=== PATIENT | male | born 1935 | race Caucasian/White ===

== ENCOUNTER → 2018-08-13 08:03 | Outpatient (CLI) | payer MEDICARE, SELFPAY ==
[2018-08-13 08:40] LABS: Add Manual Diff / Slide Review NO; Basophils Percent Auto 0.7 % (0-2); Eosinophils Percent Auto 3.6 % (2-4); Hematocrit 49.3 % (41-53); Hemoglobin 16.7 g/dL (13.5-17.5); Lymphocytes Percent Auto 61.1 % (25-40); Mean Corpuscular HGB Conc 33.8 % (30-36); Mean Corpuscular Hemoglobin 31.9 PG (26-34); Mean Corpuscular Volume 94.5 fL (80-100); Monocytes Percent Auto 8.4 % (3-14); Neutrophils Absolute Auto 3400 /uL (3000-5900); Neutrophils Percent Auto 26.2 % (50-75); Platelet Count 200 X10^3/uL (150-400); Red Blood Cell Count 5.22 X10^6/uL (4.5-5.9); Red Cell Distribution Width 14.2 % (11.6-14.8); White Blood Cell Count 13.2 X10^3/uL (4.5-11.0)
[2018-08-13 09:05] LABS: Alanine Aminotransferase 27 IU/L (21-72); Albumin 4.3 g/dL (3.5-5.0); Albumin Globulin Ratio 1.3 (1.0-2.8); Alkaline Phosphatase 70 U/L (38-126); Aspartate Aminotransferase 36 IU/L (17-59); BUN Creatinine Ratio 21.4 (6-22); Bilirubin Total 1.4 mg/dL (0.2-1.3); Blood Urea Nitrogen 15 mg/dL (9-20); Calcium 9.4 mg/dL (8.4-10.2); Carbon Dioxide 34 mmol/L (22-32); Chloride 103 mmol/L (98-107); Estimated Glomerular Filt Rate > 60.0 mL/min (>60); Globulin 3.3 g/dL (1.7-4.1); Glucose 101 mg/dL (80-110); HEMOLYSIS < 15 (0-50); Lactate Dehydrogenase 436 U/L (313-618); Potassium 4.6 mmol/L (3.4-5.1); Sodium 145 mmol/L (137-145); Total Protein 7.6 g/dL (6.3-8.2); Uric Acid 3.8 mg/dL (3.5-8.5)
== END ==
PROVIDERS: Family Provider Family Medicine; PCP Family Medicine; Visit Provider Internal Medicine Hematology & Oncology
DX: C91.10 Chronic lymphocytic leukemia of B-cell type not having achieved remission (principal)
CPT/HCPCS: 36415; 80053; 83615; 84550; 85025

== ENCOUNTER 2018-08-14 11:03 | Oncology outpatient (ONC) | payer MEDICARE, SELFPAY ==
[2018-08-14 11:21] VITALS: BP 138/64; PULSE 91; RESP 17; TEMP 37.1; O2SAT 97
--- NOTE | 2018-08-14 11:36 | ONC.PN ---
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 Interval history: The patient is an 82-year-old man who returns today for follow-up of CLL. Today, he is feeling quite well and has no specific complaints. He denies any fevers chills or night sweats. His strength and energy level have been normal. He has not had any unusual bleeding or bruising. He denies any GI complaints. His appetite and weight have been stable. He has not noted any adenopathy. He is otherwise without complaint. His medications include aspirin simvastatin allopurinol and meloxicam His past medical history is otherwise notable for hyperlipidemia. Social history: He is a retired real estate sales supervisor. He does not smoke. He remains quite active and enjoys golfing. He is . His is with him today. Home Medications and Allergies Home Medications Medication Instructions Recorded Confirmed Type aspirin 162.5 mg PO QDAY #0 05/01/13 08/14/18 History sildenafil (antihypertensive) 0 PO SEE INSTRUCTIONS #40 tab 05/08/17 Rx allopurinol 300 mg PO QDAY #90 tab 12/05/17 08/14/18 Rx meloxicam [Mobic] 7.5 mg PO AMCC #90 tab 12/05/17 08/14/18 Rx simvastatin 80 mg PO QDAY #90 tab 12/05/17 08/14/18 Rx Allergies Allergy/AdvReac Type Severity Reaction Status Date / Time No Known Drug Allergies Allergy Verified 08/14/18 11:23 Exam Vital signs: Last Vital Signs Temp 98.8 F 08/14/18 11:21 Pulse 91 H 08/14/18 11:21 Resp 17 08/14/18 11:21 BP 138/64 08/14/18 11:21 Pulse Ox 97 08/14/18 11:21 - Constitutional positive no acute distress, positive average body habitus - Routine HEENT Exam Head: Present: normocephalic, atraumatic Eye: Present: EOMI, PERRL. Absent: conjunctival icterus ENT: Present: mucous membranes moist, oropharynx clear - Routine Neck Exam Present: supple. Absent: lymphadenopathy, thyromegaly - Routine Respiratory Exam Present: Clear to auscultation bilaterally. Absent: rales, wheezes - Routine Cardiovascular Exam Present: RRR, S1, S2. Absent: murmur - Routine Abdominal Exam Present: soft, normoactive bowel sounds. Absent: organomegaly, mass - Routine Extremities Exam Present: cyanosis, clubbing, edema - Routine Back/Spine Exam Back/Spine: Present: vertebral tenderness - Routine Skin Exam Present: intact. Absent: petechiae, rash - Routine Neurological Exam Present: alert, oriented X3 - Routine Psychiatric Exam Present: normal affect, normal thought process Results - Imaging Additional studies: Procedures Repair of inguinal hernia with graft or prosthesis, not otherwise specified (11/20/14) Total splenectomy (08/02/15) Transfusion of packed cells (08/02/15)
--- NOTE | 2018-08-14 11:40 | P.PNONC_ITS ---
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 Interval history: The patient is an 82-year-old man who returns today for follow-up of CLL. Today , he is feeling quite well and has no specific complaints. He denies any fevers chills or night sweats. His strength and energy level have been normal. He has not had any unusual bleeding or bruising. He denies any GI complaints. His appetite and weight have been stable. He has not noted any adenopathy. He is otherwise without complaint. His medications include aspirin simvastatin allopurinol and meloxicam His past medical history is otherwise notable for hyperlipidemia. Social history: He is a retired real estate administrator. He does not smoke. He remains quite active and enjoys golfing. He is . His is with him today. Home Medications and Allergies Home Medications Medication Instructions Recorded Confirmed Type aspirin 162.5 mg PO QDAY #0 05/01/13 08/14/18 History sildenafil (antihypertensive) 0 PO SEE INSTRUCTIONS #40 tab 05/08/17 Rx allopurinol 300 mg PO QDAY #90 tab 12/05/17 08/14/18 Rx meloxicam [Mobic] 7.5 mg PO AMCC #90 tab 12/05/17 08/14/18 Rx simvastatin 80 mg PO QDAY #90 tab 12/05/17 08/14/18 Rx Allergies Allergy/AdvReac Type Severity Reaction Status Date / Time No Known Drug Allergies Allergy Verified 08/14/18 11:23 Exam Vital signs: Last Vital Signs Temp 98.8 F 08/14/18 11:21 Pulse 91 H 08/14/18 11:21 Resp 17 08/14/18 11:21 BP 138/64 08/14/18 11:21 Pulse Ox 97 08/14/18 11:21 - Constitutional positive no acute distress, positive average body habitus - Routine HEENT Exam Head: Present: normocephalic, atraumatic Eye: Present: EOMI, PERRL. Absent: conjunctival icterus ENT: Present: mucous membranes moist, oropharynx clear - Routine Neck Exam Present: supple. Absent: lymphadenopathy, thyromegaly - Routine Respiratory Exam Present: Clear to auscultation bilaterally. Absent: rales, wheezes - Routine Cardiovascular Exam Present: RRR, S1, S2. Absent: murmur - Routine Abdominal Exam Present: soft, normoactive bowel sounds. Absent: organomegaly, mass - Routine Extremities Exam Present: cyanosis, clubbing, edema - Routine Back/Spine Exam Back/Spine: Present: vertebral tenderness - Routine Skin Exam Present: intact. Absent: petechiae, rash - Routine Neurological Exam Present: alert, oriented X3 - Routine Psychiatric Exam Present: normal affect, normal thought process Results - Imaging Additional studies: Procedures Repair of inguinal hernia with graft or prosthesis, not otherwise specified (06/27) Total splenectomy (08/02/15) Transfusion of packed cells (08/02/15)
== END 2018-08-29 14:13 ==
LOC: ONC 11:09
PROVIDERS: Family Provider Family Medicine; PCP Family Medicine
DX: Z08 Encounter for follow-up examination after completed treatment for malignant neoplasm (principal); Z85.6 Personal history of leukemia
CPT/HCPCS: 99214

== ENCOUNTER 2018-09-07 13:39 | Emergency (ER) | payer MEDICARE, SELFPAY ==
[2018-09-07] VITALS (9 sets, daily range): BP systolic 143–158; BP diastolic 71–82; PULSE 68–77; RESP 13–18; TEMP 36.9; O2SAT 96–100; BMI 26.6
--- NOTE | 2018-09-07 14:00 | DI.RAD.S_ITS ---
PROCEDURE: XR CHEST 1V INDICATIONS: dizziness TECHNIQUE: One view of the chest was acquired. COMPARISON: [facility], CT, CHEST/ABD/PEL WITH CONTRAST, 08/02/2015, 10:28. [facility], RG, XR CXR 2V, 04/08/2005, 9:21. [facility], CR, CHEST 1 VIEW, 08/02/2015, 8:52. FINDINGS: Surgical changes and devices: Left upper quadrant postoperative clips are seen. Lungs and pleura: No pleural effusions or pneumothorax. Streaky opacities can be seen at the lung bases, which are improved compared to 2015. Mediastinum: The cardiac contours are within normal limits. The aorta demonstrates calcification and tortuosity. Bones and chest wall: No suspicious bony lesions. Overlying soft tissues appear unremarkable. IMPRESSION: Likely atelectasis versus scarring at the lung bases. Postoperative and degenerative changes are seen. Dictated by: Olu Estrada M.D. on 09/07/2018 at 13:36 Approved by: Olu Estrada M.D. on 09/07/2018 at 13:38
[2018-09-07 14:19] LABS: Add Manual Diff / Slide Review NO; Basophils Percent Auto 0.7 % (0-2); Hematocrit 47.6 % (41-53); Hemoglobin 15.8 g/dL (13.5-17.5); Lymphocytes Percent Auto 49.8 % (25-40); Mean Corpuscular HGB Conc 33.2 % (30-36); Mean Corpuscular Hemoglobin 31.4 PG (26-34); Mean Corpuscular Volume 94.4 fL (80-100); Monocytes Percent Auto 9.9 % (3-14); Neutrophils Absolute Auto 4800 /uL (3000-5900); Neutrophils Percent Auto 38.6 % (50-75); Platelet Count 198 X10^3/uL (150-400); Red Blood Cell Count 5.04 X10^6/uL (4.5-5.9); Red Cell Distribution Width 14.4 % (11.6-14.8); White Blood Cell Count 12.4 X10^3/uL (4.5-11.0)
[2018-09-07] MEDS: SODIUM CHLORIDE 0.9% 1,000 ML 150 ML IV (14:19)
[2018-09-07 14:28] LABS: Alanine Aminotransferase 30 IU/L (21-72); Albumin 4.2 g/dL (3.5-5.0); Albumin Globulin Ratio 1.4 (1.0-2.8); Alkaline Phosphatase 55 U/L (38-126); Aspartate Aminotransferase 31 IU/L (17-59); BUN Creatinine Ratio 22.9 (6-22); Blood Urea Nitrogen 16 mg/dL (9-20); Calcium 9.1 mg/dL (8.4-10.2); Carbon Dioxide 33 mmol/L (22-32); Chloride 102 mmol/L (98-107); Estimated Glomerular Filt Rate > 60.0 mL/min (>60); Globulin 2.9 g/dL (1.7-4.1); Glucose 107 mg/dL (80-110); HEMOLYSIS < 15 (0-50); Sodium 144 mmol/L (137-145); Total Protein 7.1 g/dL (6.3-8.2)
[2018-09-07 14:41] LABS: Troponin I < 0.012 ng/mL (0.01-0.034)
--- NOTE | 2018-09-07 14:52 | DI.CT.S_ITS ---
PROCEDURE: CT HEAD/BRAIN WO CON INDICATIONS: dizziness TECHNIQUE: Noncontrast 4.5 mm thick angled axial sections acquired from the foramen magnum to the vertex, with coronal and sagittal reformats. For radiation dose reduction, the following was used: automated exposure control, adjustment of mA and/or kV according to patient size. COMPARISON: None. FINDINGS: Image quality: Excellent. CSF spaces: Basal cisterns are patent. No extra-axial fluid collections. The ventricles are symmetric in size and shape. Brain: No intracranial bleeds or masses. There is mild cerebral volume loss for age, with resultant ventricular and sulcal prominence. There are severe periventricular and deep white matter chronic small vessel ischemic changes. There is intracranial internal carotid artery atherosclerosis. Skull and face: Calvarium and visualized facial bones appear intact, without suspicious lesions. Sinuses: Visualized sinuses and mastoids are clear. IMPRESSION: No acute intracranial disease process. Dictated by: Olinda Salinas MD, PhD on 09/07/2018 at 15:07 Approved by: Olinda Salinas MD, PhD on 09/07/2018 at 15:10
[2018-09-07] MEDS: MECLIZINE HCL 12.5 MG TABLET 25 MG PO (15:00)
[2018-09-07] MEDS: SODIUM CHLORIDE 0.9% 1,000 ML 1000 ML IV (15:00)
--- NOTE | 2018-09-07 15:01 | ED.DIZZY ---
HPI - Dizziness General Chief Complaint: Dizziness Stated Complaint: DIZZY SPELLS, BP ISSUES Time Seen by Provider: 09/07/18 13:59 Source: patient and family Limitations: no limitations History of Present Illness HPI Narrative: This is a 82-year-old gentleman who comes to the emergency department with complaint of dizziness. He states he noticed he felt dizzy about 10 30 last night he went to bed and when he woke up in the middle the night he felt very dizzy. He describes this as feeling off balance. He states the room not spinning around him but he feels like his head is whirling. He states that some if he sits on the edge of the bed his symptoms were okay but trying to walk he had to hang on things to keep from stumbling or falling. He states that today has continued to increase and he was unable to stand or walk around the house. Patient states that he has not had any loss of consciousness or feeling like he is going to pass out, he denies any tunnel vision. He has not felt any weakness in his extremities or Um any focal neurologic deficits. He denies any vision changes, he had a slight headache this morning but it has improved. He denies any chest pain, no shortness of breath, no nausea or vomiting, no issues with bowel movements or urination. Denies any numbness or tingling of his extremities. He has had some slight nasal congestion but has not had any ear pain or pressure. He does have a history of CO cardiac stent in 2001. He also has CLL Um which was diagnosed about 20 years ago and has not required any treatment. Other than a splenectomy, patient does smoke above ordered have bouts of alcohol daily. He takes a statin for cholesterol but denies any hypertension, diabetes, chronic kidney disease or other issues. He has had a hernia and states his only allergies are 2 cats. He did use to smoke but quit a long time ago. Related Data Home Medications Medication Instructions Recorded Confirmed aspirin 162.5 mg PO QDAY #0 05/01/13 09/07/18 simvastatin 40 mg PO QPM 09/07/18 09/07/18 Previous Rx's Medication Instructions Recorded allopurinol 300 mg PO QDAY #90 tab 12/05/17 meloxicam [Mobic] 7.5 mg PO AMCC #90 tab 12/05/17 meclizine 25 mg PO TID-QID PRN #10 tab 10/26/18 Allergies Allergy/AdvReac Type Severity Reaction Status Date / Time No Known Drug Allergies Allergy Verified 08/14/18 11:23 Review of Systems Review of Systems All systems reviewed & are unremarkable except as noted in HPI and below Constitutional Denies fever(s), Reports headache(s) and Denies weakness Eyes Denies blurry vision ENT Ears, Nose, Mouth, and Throat: Reports vertigo, Reports dizziness, Denies otalgia, Reports headache(s), Reports nasal congestion (Mild) and Reports disequilibrium Cardiovascular Denies chest pain, Denies diaphoresis, Denies syncope, Denies pedal edema, Denies irregular heart rhythm, Denies lightheadedness, Denies palpitations, Denies dyspnea and Denies orthopnea Respiratory Denies chest congestion, Denies cough, Denies pain with cough, Denies dyspnea and Denies wheezing Gastrointestinal Gastrointestinal: Denies abdominal pain, Denies change in bowel habits, Denies diarrhea, Denies nausea and Denies vomiting Genitourinary Denies difficulty urinating Musculoskeletal Denies abnormal gait, Denies numbness and Denies tingling Integumentary/Breasts Denies rash Neurologic Denies abnormal gait, Reports vertigo, Reports dizziness, Denies syncope, Reports headache(s), Denies focal weakness, Denies numbness, Denies tingling, Reports disequilibrium and Denies weakness Endocrine Denies palpitations Allergic/Immunologic Denies wheezing PFSH Medical History CLL (chronic lymphocytic leukemia) (Acute) Coronary artery disease (Acute) Dyslipidemia (Acute) Surgical History H/O heart artery stent (Acute) H/O splenectomy (Acute) Status post hernia repair Social History Smoking Status: Former smoker alcohol intake: current substance use type: does not use Exam Narrative Exam Narrative: GEN: well nourished, well appearing male, alert and oriented x 3, patient appears to be in mild distress. HEENT: Atraumatic, pupils are equal round reactive to light, extraocular movements are intact, no nystagmus, nares are clear, TMs are clear with no fluid, there is no conjunctival pallor. Throat is clear without any exudates, erythema, tonsillar enlargement or uvular deviation HEART: Regular rate and rhythm without murmur, clicks, rubs. Pulses equal bilateral extremities. LUNGS:Lungs clear to auscultation, no wheezes, rales, crackles, chest moves symmetrically ABD:bowel sounds normal, soft, non-tender, no guarding, rebound, rigidity, no masses noted, no hepatosplenomegaly :No CVA tenderness MSCL: Non-tender, no muscle atrophy, muscles strength 5/5 upper and lower extremities, full range of motion, normal gait NEURO:CN 2-12 intact, sensation normal, reflexes 2/4 upper and lower extremities. finger nose finger test normal, heel huggins test normal Initial Vital Signs Initial Vital Signs: Vital Signs Temperature 98.5 F 09/07/18 13:55 Pulse Rate 71 09/07/18 13:55 Respiratory Rate 16 09/07/18 13:55 Blood Pressure 157/78 H 09/07/18 13:55 Pulse Oximetry 97 09/07/18 13:55 Scores NIH Stroke Scale Level of Conciousness: Alert, keenly responsive Ask month/age: Answers both questions correctly. Open/close eyes, close hand: Performs both tasks correctly Best gaze horizontal: Normal Visual mariee: No visual loss Facial palsy: Normal symetrical movement Left arm drift: No drift for full 10 sec Right arm drift: No drift for full 10 sec Left leg drift: No drift for full 10 sec Right leg drift: No drift for full 10 sec Limb ataxia: Absent Sensory on face/arms/legs: Normal, no sensory loss Best language: No aphasia, normal Dysarthria: Normal Extinction or inattention: No abnormality Total NIH Stroke scale score: 0 Course Orders Ordered: ED Orders 09/07/18 14:00 XR chest 1V Stat 09/07/18 14:05 Complete Blood Count AUTO DIFF Stat Comprehensive Metabolic Panel Stat Prothrombin Time INR Stat Troponin I Stat 09/07/18 14:52 CT head/brain wo con Stat Discontinued Medications Sodium Chloride (Normal Saline 0.9%) 1,000 mls @ 150 mls/hr IV CONT VAUGHN Last Infusion: 09/07/18 15:03 Dose: 0 mls/hr Admin: 09/07/18 14:19 Dose: 150 mls/hr Sodium Chloride (Normal Saline 0.9%) 1,000 mls @ 1,000 mls/hr IV BOLUS ONE Stop: 09/07/18 15:49 Last Infusion: 09/07/18 16:09 Dose: 0 mls/hr Admin: 09/07/18 15:00 Dose: 1,000 mls/hr Meclizine HCl (Antivert) 25 mg PO NOW ONE Stop: 09/07/18 14:50 Last Admin: 09/07/18 15:00 Dose: 25 mg Vital Signs - 8 hr 09/07/18 13:55 09/07/18 14:00 09/07/18 14:10 Temperature 98.5 F Pulse Rate 71 68 Pulse Rate [Orthostatic Lying] 69 Respiratory Rate 16 18 Blood Pressure 157/78 H Blood Pressure [Orthostatic Lying] 150/74 H Blood Pressure [Right Arm] 145/73 H Pulse Oximetry 97 98 09/07/18 14:14 09/07/18 14:16 09/07/18 15:07 Temperature Pulse Rate 71 Pulse Rate [Orthostatic Lying] 68 70 Respiratory Rate 17 Blood Pressure Blood Pressure [Orthostatic Lying] 154/82 H 152/72 H Blood Pressure [Right Arm] 158/71 H Pulse Oximetry 100 09/07/18 16:08 09/07/18 16:31 09/07/18 16:59 Temperature Pulse Rate 76 76 77 Pulse Rate [Orthostatic Lying] Respiratory Rate 16 13 16 Blood Pressure 143/74 H Blood Pressure [Orthostatic Lying] Blood Pressure [Right Arm] 152/75 H 143/74 H Pulse Oximetry 99 96 98 MDM - Dizziness Lab Data Attestation: I reviewed the patient's lab results. Result diagrams: 09/07/18 14:05 09/07/18 14:05 Lab Results 09/07/18 09/07/18 09/07/18 Range/Units 14:05 14:05 14:05 WBC 12.4 H (4.5-11.0) X10^3/uL RBC 5.04 (4.5-5.9) X10^6/uL Hgb 15.8 (13.5-17.5) g/dL Hct 47.6 (41-53) % MCV 94.4 (80-100) fL MCH 31.4 (26-34) PG MCHC 33.2 (30-36) % RDW 14.4 (11.6-14.8) % Plt Count 198 (150-400) X10^3/uL Neut % (Auto) 38.6 L (50-75) % Lymph % (Auto) 49.8 H (25-40) % [place] % (Auto) 9.9 (3-14) % Eos % (Auto) 1.0 L (2-4) % Baso % (Auto) 0.7 (0-2) % Neut # (Auto) 4800 (3167-5771) /uL PT 11.0 (10.1-12.7) SECONDS INR 1.0 (0.9-1.3) Sodium 144 (137-145) mmol/L Potassium 4.0 (3.4-5.1) mmol/L Chloride 102 (98-107) mmol/L Carbon Dioxide 33 H (22-32) mmol/L BUN 16 (9-20) mg/dL Creatinine 0.70 (0.66-1.25) mg/dL Estimated GFR > 60.0 (>60) mL/min BUN/Creatinine Ratio 22.9 H (6-22) Glucose 107 (80-110) mg/dL Calcium 9.1 (8.4-10.2) mg/dL Total Bilirubin 1.0 (0.2-1.3) mg/dL AST 31 (17-59) IU/L ALT 30 (21-72) IU/L Alkaline Phosphatase 55 (38-126) U/L Troponin I < 0.012 (0.01-0.034) ng/mL Total Protein 7.1 (6.3-8.2) g/dL Albumin 4.2 (3.5-5.0) g/dL Globulin 2.9 (1.7-4.1) g/dL Albumin/Globulin Ratio 1.4 (1.0-2.8) Point of Care Testing Glucose POC 104 Urine Dip Bedside Urine Glucose Negative Bedside Urine Bilirubin - Negative Bedside Urine Ketone - Negative Urine Specific [place] 1.015 Bedside Urine Occult Blood - Negative Bedside Urine pH 6.5 Bedside Urine Protein - Negative Bedside Urine Urobilinogen - Negative Bedside Urine Nitrite - Negative Bedside Urine Leukocytes - Negative Esterase Imaging Data CT scan - head: Radiologist's impression: [address] [address] [address] Scan Report Signed Patient: Heath Mcdonald JMR#: [id number] : 5Acct:[id number] Age/Sex: 82 / MDate of Service: 09/07/18 Loc: ED Accession Number: [id number] Procedure: CT head/brain wo con Ordering Provider: Betzy Soto D.O. PROCEDURE: CT HEAD/BRAIN WO CON INDICATIONS: dizziness TECHNIQUE: Noncontrast 4.5 mm thick angled axial sections acquired from the foramen magnum to the vertex, with coronal and sagittal reformats. For radiation dose reduction, the following was used: automated exposure control, adjustment of mA and/or kV according to patient size. COMPARISON: None. FINDINGS: Image quality: Excellent. CSF spaces: Basal cisterns are patent. No extra-axial fluid collections. The ventricles are symmetric in size and shape. Brain: No intracranial bleeds or masses. There is mild cerebral volume loss for age, with resultant ventricular and sulcal prominence. There are severe periventricular and deep white matter chronic small vessel ischemic changes. There is intracranial internal carotid artery atherosclerosis. Skull and face: Calvarium and visualized facial bones appear intact, without suspicious lesions. Sinuses: Visualized sinuses and mastoids are clear. IMPRESSION: No acute intracranial disease process. Dictated by: Olinda Salinas MD, PhD on 09/07/2018 at 15:07 Approved by: Olinda Salinas MD, PhD on 09/07/2018 at 15:10 Chest x-ray: Radiologist's impression: [place] [address] XRay Report Signed Patient: Heath Mcdonald R#: [id number] : 5Acct:[id number] Age/Sex: 82 / MDate of Service: 09/07/18 Loc: ED Accession Number: [id number] Procedure: XR chest 1V Ordering Provider: Betzy Soto D.O. PROCEDURE: XR CHEST 1V INDICATIONS: dizziness TECHNIQUE: One view of the chest was acquired. COMPARISON: [facility], CT, CHEST/ABD/PEL WITH CONTRAST, 08/02/2015, 10:28. [facility], RG, XR CXR 2V, 04/08/2005, 9:21. [facility], CR, CHEST 1 VIEW, 08/02/2015, 8:52. FINDINGS: Surgical changes and devices: Left upper quadrant postoperative clips are seen. Lungs and pleura: No pleural effusions or pneumothorax. Streaky opacities can be seen at the lung bases, which are improved compared to 2014. Mediastinum: The cardiac contours are within normal limits. The aorta demonstrates calcification and tortuosity. Bones and chest wall: No suspicious bony lesions. Overlying soft tissues appear unremarkable. IMPRESSION: Likely atelectasis versus scarring at the lung bases. Postoperative and degenerative changes are seen. Dictated by: Olu Estrada M.D. on 09/07/2018 at 13:36 Approved by: Olu Estrada M.D. on 09/07/2018 at 13:38 ECG Data Attestation: I personally reviewed and interpreted this ECG as follows: Interpretation: Sinus rhythm with a rate of 68, P are 181 QRS of 82 and QTC of [address] changes appreciated. MDM Narrative Medical decision making narrative: Further description patient's symptoms sound consistent with a vertigo, I am unable to elicit any nystagmus or other changes. His NIH score is 0. After some meclizine his symptoms have improved he states he felt a little dizzy when he 1st set up in the bed able to ambulate to the bathroom without issue. We did discuss that we cannot completely rule out stroke with head CT but my suspicion for this is low, patient does have a slight white count but no other signs of infection. His electrolytes are normal, he has plan for follow up outpatient with physician. Was given a short-term script for meclizine and asked to return to the ED if worsening symptoms. Discharge Plan Departure Patient Disposition: Home Clinical Impression: Vertigo Discharge Date/Time: 09/07/18 16:58 Interventions: ED Discharge Assessment Last Done: 09/07/18 16:59 Instructions: DI for Vertigo Activity Restrictions/Additional Instructions: Follow-up in 2 or 3 days for recheck. Call Monday morning for an appointment with your primary care physician. You may continue your home medications as prescribed. Take meclizine as needed to 2 tablets every 6-8 hours. Has return to the emergency department for fevers, sudden severe headaches, passing out, new vision changes, new weakness, numbness or difficulty with speech. Rapidly worsening vertigo like symptoms or inability to move about safely or other new or concerning symptoms. Prescriptions: New meclizine 25 mg tablet 25 mg PO TID-QID PRN (Reason: dizziness) Qty: 10 RF: 0 No Action aspirin 325 MG tablet,delayed release (DR/EC) 162.5 mg PO QDAY Qty: 0 RF: 0 meloxicam [Mobic] 7.5 MG tablet 7.5 mg PO AMCC Qty: 90 RF: 3 allopurinol 300 MG tablet 300 mg PO QDAY Qty: 90 RF: 3 simvastatin 80 MG tablet 40 mg PO QPM RF: 0
--- NOTE | 2018-09-07 15:36 | ED_ITS ---
HPI - Dizziness General Chief Complaint: Dizziness Stated Complaint: DIZZY SPELLS, BP ISSUES Time Seen by Provider: 09/07/18 13:59 Source: patient and family Limitations: no limitations History of Present Illness HPI Narrative: This is a 82-year-old gentleman who comes to the emergency department with complaint of dizziness. He states he noticed he felt dizzy about 10 30 last night he went to bed and when he woke up in the middle the night he felt very dizzy. He describes this as feeling off balance. He states the room not spinning around him but he feels like his head is whirling. He states that some if he sits on the edge of the bed his symptoms were okay but trying to walk he had to hang on things to keep from stumbling or falling. He states that today has continued to increase and he was unable to stand or walk around the house. Patient states that he has not had any loss of consciousness or feeling like he is going to pass out, he denies any tunnel vision. He has not felt any weakness in his extremities or Um any focal neurologic deficits. He denies any vision changes, he had a slight headache this morning but it has improved. He denies any chest pain, no shortness of breath, no nausea or vomiting, no issues with bowel movements or urination. Denies any numbness or tingling of his extremities. He has had some slight nasal congestion but has not had any ear pain or pressure. He does have a history of [place] cardiac stent in 2001. He also has CLL Um which was diagnosed about 20 years ago and has not required any treatment. Other than a splenectomy, patient does smoke above ordered have bouts of alcohol daily. He takes a statin for cholesterol but denies any hypertension, diabetes, chronic kidney disease or other issues. He has had a hernia and states his only allergies are 2 cats. He did use to smoke but quit a long time ago. Related Data Home Medications Medication Instructions Recorded Confirmed aspirin 162.5 mg PO QDAY #0 05/01/13 09/07/18 simvastatin 40 mg PO QPM 09/07/18 09/07/18 Previous Rx's Medication Instructions Recorded allopurinol 300 mg PO QDAY #90 tab 12/05/17 meloxicam [Mobic] 7.5 mg PO AMCC #90 tab 12/05/17 meclizine 25 mg PO TID-QID PRN #10 tab 10/26/18 Allergies Allergy/AdvReac Type Severity Reaction Status Date / Time No Known Drug Allergies Allergy Verified 08/14/18 11:23 Review of Systems Review of Systems All systems reviewed & are unremarkable except as noted in HPI and below Constitutional Denies fever(s), Reports headache(s) and Denies weakness Eyes Denies blurry vision ENT Ears, Nose, Mouth, and Throat: Reports vertigo, Reports dizziness, Denies otalgia, Reports headache(s), Reports nasal congestion (Mild) and Reports disequilibrium Cardiovascular Denies chest pain, Denies diaphoresis, Denies syncope, Denies pedal edema, Denies irregular heart rhythm, Denies lightheadedness, Denies palpitations, Denies dyspnea and Denies orthopnea Respiratory Denies chest congestion, Denies cough, Denies pain with cough, Denies dyspnea and Denies wheezing Gastrointestinal Gastrointestinal: Denies abdominal pain, Denies change in bowel habits, Denies diarrhea, Denies nausea and Denies vomiting Genitourinary Denies difficulty urinating Musculoskeletal Denies abnormal gait, Denies numbness and Denies tingling Integumentary/Breasts Denies rash Neurologic Denies abnormal gait, Reports vertigo, Reports dizziness, Denies syncope, Reports headache(s), Denies focal weakness, Denies numbness, Denies tingling, Reports disequilibrium and Denies weakness Endocrine Denies palpitations Allergic/Immunologic Denies wheezing PFSH Medical History CLL (chronic lymphocytic leukemia) (Acute) Coronary artery disease (Acute) Dyslipidemia (Acute) Surgical History H/O heart artery stent (Acute) H/O splenectomy (Acute) Status post hernia repair Social History Smoking Status: Former smoker alcohol intake: current substance use type: does not use Exam Narrative Exam Narrative: GEN: well nourished, well appearing male, alert and oriented x 3 , patient appears to be in mild distress. HEENT: Atraumatic, pupils are equal round reactive to light, extraocular movements are intact, no nystagmus, nares are clear, TMs are clear with no fluid , there is no conjunctival pallor. Throat is clear without any exudates, erythema, tonsillar enlargement or uvular deviation HEART: Regular rate and rhythm without murmur, clicks, rubs. Pulses equal bilateral extremities. LUNGS:Lungs clear to auscultation, no wheezes, rales, crackles, chest moves symmetrically ABD:bowel sounds normal, soft, non-tender, no guarding, rebound, rigidity, no masses noted, no hepatosplenomegaly :No CVA tenderness MSCL: Non-tender, no muscle atrophy, muscles strength 5/5 upper and lower extremities, full range of motion, normal gait NEURO:CN 2-12 intact, sensation normal, reflexes 2/4 upper and lower extremities. finger nose finger test normal, heel huggins test normal Initial Vital Signs Initial Vital Signs: Vital Signs Temperature 98.5 F 09/07/18 13:55 Pulse Rate 71 09/07/18 13:55 Respiratory Rate 16 09/07/18 13:55 Blood Pressure 157/78 H 09/07/18 13:55 Pulse Oximetry 97 09/07/18 13:55 Scores NIH Stroke Scale Level of Conciousness: Alert, keenly responsive Ask month/age: Answers both questions correctly. Open/close eyes, close hand: Performs both tasks correctly Best gaze horizontal: Normal Visual mariee: No visual loss Facial palsy: Normal symetrical movement Left arm drift: No drift for full 10 sec Right arm drift: No drift for full 10 sec Left leg drift: No drift for full 10 sec Right leg drift: No drift for full 10 sec Limb ataxia: Absent Sensory on face/arms/legs: Normal, no sensory loss Best language: No aphasia, normal Dysarthria: Normal Extinction or inattention: No abnormality Total NIH Stroke scale score: 0 Course Orders Ordered: ED Orders 09/07/18 14:00 XR chest 1V Stat 09/07/18 14:05 Complete Blood Count AUTO DIFF Stat Comprehensive Metabolic Panel Stat Prothrombin Time INR Stat Troponin I Stat 09/07/18 14:52 CT head/brain wo con Stat Discontinued Medications Sodium Chloride (Normal Saline 0.9%) 1,000 mls @ 150 mls/hr IV CONT VAUGHN Last Infusion: 09/07/18 15:03 Dose: 0 mls/hr Admin: 09/07/18 14:19 Dose: 150 mls/hr Sodium Chloride (Normal Saline 0.9%) 1,000 mls @ 1,000 mls/hr IV BOLUS ONE Stop: 09/07/18 15:49 Last Infusion: 09/07/18 16:09 Dose: 0 mls/hr Admin: 09/07/18 15:00 Dose: 1,000 mls/hr Meclizine HCl (Antivert) 25 mg PO NOW ONE Stop: 09/07/18 14:50 Last Admin: 09/07/18 15:00 Dose: 25 mg Vital Signs - 8 hr 09/07/18 13:55 09/07/18 14:00 09/07/18 14:10 Temperature 98.5 F Pulse Rate 71 68 Pulse Rate [Orthostatic Lying] 69 Respiratory Rate 16 18 Blood Pressure 157/78 H Blood Pressure [Orthostatic Lying] 150/74 H Blood Pressure [Right Arm] 145/73 H Pulse Oximetry 97 98 09/07/18 14:14 09/07/18 14:16 09/07/18 15:07 Temperature Pulse Rate 71 Pulse Rate [Orthostatic Lying] 68 70 Respiratory Rate 17 Blood Pressure Blood Pressure [Orthostatic Lying] 154/82 H 152/72 H Blood Pressure [Right Arm] 158/71 H Pulse Oximetry 100 09/07/18 16:08 09/07/18 16:31 09/07/18 16:59 Temperature Pulse Rate 76 76 77 Pulse Rate [Orthostatic Lying] Respiratory Rate 16 13 16 Blood Pressure 143/74 H Blood Pressure [Orthostatic Lying] Blood Pressure [Right Arm] 152/75 H 143/74 H Pulse Oximetry 99 96 98 MDM - Dizziness Lab Data Attestation: I reviewed the patient's lab results. Result diagrams: 09/07/18 14:05 09/07/18 14:05 Lab Results 09/07/18 09/07/18 09/07/18 Range/Units 14:05 14:05 14:05 WBC 12.4 H (4.5-11.0) X10^3/uL RBC 5.04 (4.5-5.9) X10^6/uL Hgb 15.8 (13.5-17.5) g/dL Hct 47.6 (41-53) % MCV 94.4 (80-100) fL MCH 31.4 (26-34) PG MCHC 33.2 (30-36) % RDW 14.4 (11.6-14.8) % Plt Count 198 (150-400) X10^3/uL Neut % (Auto) 38.6 L (50-75) % Lymph % (Auto) 49.8 H (25-40) % [place] % (Auto) 9.9 (3-14) % Eos % (Auto) 1.0 L (2-4) % Baso % (Auto) 0.7 (0-2) % Neut # (Auto) 4800 (7961-1310) /uL PT 11.0 (10.1-12.7) SECONDS INR 1.0 (0.9-1.3) Sodium 144 (137-145) mmol/L Potassium 4.0 (3.4-5.1) mmol/L Chloride 102 (98-107) mmol/L Carbon Dioxide 33 H (22-32) mmol/L BUN 16 (9-20) mg/dL Creatinine 0.70 (0.66-1.25) mg/dL Estimated GFR > 60.0 (>60) mL/min BUN/Creatinine Ratio 22.9 H (6-22) Glucose 107 (80-110) mg/dL Calcium 9.1 (8.4-10.2) mg/dL Total Bilirubin 1.0 (0.2-1.3) mg/dL AST 31 (17-59) IU/L ALT 30 (21-72) IU/L Alkaline Phosphatase 55 (38-126) U/L Troponin I < 0.012 (0.01-0.034) ng/mL Total Protein 7.1 (6.3-8.2) g/dL Albumin 4.2 (3.5-5.0) g/dL Globulin 2.9 (1.7-4.1) g/dL Albumin/Globulin Ratio 1.4 (1.0-2.8) Point of Care Testing Glucose POC 104 Urine Dip Bedside Urine Glucose Negative Bedside Urine Bilirubin - Negative Bedside Urine Ketone - Negative Urine Specific [place] 1.015 Bedside Urine Occult Blood - Negative Bedside Urine pH 6.5 Bedside Urine Protein - Negative Bedside Urine Urobilinogen - Negative Bedside Urine Nitrite - Negative Bedside Urine Leukocytes - Negative Esterase Imaging Data CT scan - head: Radiologist's impression: [address] [address] [address] Scan Report Signed Patient: Heath Mcdonald JMR#: [id number] : 5Acct:[id number] Age/Sex: 82 / MDate of Service: 09/07/18 Loc: ED Accession Number: [id number] Procedure: CT head/brain wo con Ordering Provider: Betzy Soto D.O. PROCEDURE: CT HEAD/BRAIN WO CON INDICATIONS: dizziness TECHNIQUE: Noncontrast 4.5 mm thick angled axial sections acquired from the foramen magnum to the vertex, with coronal and sagittal reformats. For radiation dose reduction, the following was used: automated exposure control, adjustment of mA and/or kV according to patient size. COMPARISON: None. FINDINGS: Image quality: Excellent. CSF spaces: Basal cisterns are patent. No extra-axial fluid collections. The ventricles are symmetric in size and shape. Brain: No intracranial bleeds or masses. There is mild cerebral volume loss for age, with resultant ventricular and sulcal prominence. There are severe periventricular and deep white matter chronic small vessel ischemic changes. There is intracranial internal carotid artery atherosclerosis. Skull and face: Calvarium and visualized facial bones appear intact, without suspicious lesions. Sinuses: Visualized sinuses and mastoids are clear. IMPRESSION: No acute intracranial disease process. Dictated by: Olinda Salinas MD, PhD on 09/07/2018 at 15:07 Approved by: Olinda Salinas MD, PhD on 09/07/2018 at 15:10 Chest x-ray: Radiologist's impression: [place] [address] XRay Report Signed Patient: Heath Mcdonald R#: [id number] : 5Acct:[id number] Age/Sex: 82 / MDate of Service: 09/07/18 Loc: ED Accession Number: [id number] Procedure: XR chest 1V Ordering Provider: Betzy Soto D.O. PROCEDURE: XR CHEST 1V INDICATIONS: dizziness TECHNIQUE: One view of the chest was acquired. COMPARISON: [facility], CT, CHEST/ABD/PEL WITH CONTRAST, 08/02/2015, 10: 28. [facility], RG, XR CXR 2V, 04/08/2005, 9:21. [facility], CR, CHEST 1 VIEW, , 8:52. FINDINGS: Surgical changes and devices: Left upper quadrant postoperative clips are seen. Lungs and pleura: No pleural effusions or pneumothorax. Streaky opacities can be seen at the lung bases, which are improved compared to 2014. Mediastinum: The cardiac contours are within normal limits. The aorta demonstrates calcification and tortuosity. Bones and chest wall: No suspicious bony lesions. Overlying soft tissues appear unremarkable. IMPRESSION: Likely atelectasis versus scarring at the lung bases. Postoperative and degenerative changes are seen. Dictated by: Olu Estrada M.D. on 09/07/2018 at 13:36 Approved by: Olu Estrada M.D. on 09/07/2018 at 13:38 ECG Data Attestation: I personally reviewed and interpreted this ECG as follows: Interpretation: Sinus rhythm with a rate of 68, P are 181 QRS of 82 and QTC of [address] changes appreciated. MDM Narrative Medical decision making narrative: Further description patient's symptoms sound consistent with a vertigo, I am unable to elicit any nystagmus or other changes. His NIH score is 0. After some meclizine his symptoms have improved he states he felt a little dizzy when he 1st set up in the bed able to ambulate to the bathroom without issue. We did discuss that we cannot completely rule out stroke with head CT but my suspicion for this is low, patient does have a slight white count but no other signs of infection. His electrolytes are normal , he has plan for follow up outpatient with physician. Was given a short-term script for meclizine and asked to return to the ED if worsening symptoms. Discharge Plan Departure Patient Disposition: Home Clinical Impression: Vertigo Discharge Date/Time: 09/07/18 16:58 Interventions: ED Discharge Assessment Last Done: 09/07/18 16:59 Instructions: DI for Vertigo Activity Restrictions/Additional Instructions: Follow-up in 2 or 3 days for recheck. Call Monday morning for an appointment with your primary care physician. You may continue your home medications as prescribed. Take meclizine as needed to 2 tablets every 6-8 hours. Has return to the emergency department for fevers, sudden severe headaches, passing out, new vision changes, new weakness, numbness or difficulty with speech. Rapidly worsening vertigo like symptoms or inability to move about safely or other new or concerning symptoms. Prescriptions: New meclizine 25 mg tablet 25 mg PO TID-QID PRN (Reason: dizziness) Qty: 10 RF: 0 No Action aspirin 325 MG tablet,delayed release (DR/EC) 162.5 mg PO QDAY Qty: 0 RF: 0 meloxicam [Mobic] 7.5 MG tablet 7.5 mg PO AMCC Qty: 90 RF: 3 allopurinol 300 MG tablet 300 mg PO QDAY Qty: 90 RF: 3 simvastatin 80 MG tablet 40 mg PO QPM RF: 0
== END 2018-09-07 16:58 | disposition home or self-care (01) ==
PROVIDERS: Emergency Provider Emergency Medicine; Family Provider Family Medicine; PCP Family Medicine
DX: R42 Dizziness and giddiness (principal)
CPT/HCPCS: 36415; 70450; 71045; 80053; 81003; 82962; 84484; 85025; 85610; 93005; 93010; 93041; 96360; 99285

== ENCOUNTER → 2019-01-23 09:21 | Outpatient (CLI) | payer MEDICARE, SELFPAY ==
[2019-01-23 09:55] LABS: Basophils Absolute Auto 100 /uL (0-100); Basophils Percent Auto 0.7 % (0-2); Eosinophils Absolute Auto 300 /uL (0-450); Eosinophils Percent Auto 2.7 % (2-4); Hematocrit 49.2 % (41-53); Hemoglobin 16.4 g/dL (13.5-17.5); Lymphocytes Absolute Auto 7800 /uL (1100-4500); Lymphocytes Percent Auto 61.7 % (25-40); Mean Corpuscular HGB Conc 33.2 % (30-36); Mean Corpuscular Hemoglobin 31.5 PG (26-34); Mean Corpuscular Volume 94.7 fL (80-100); Monocytes Absolute Auto 1100 /uL (0-900); Monocytes Percent Auto 8.5 % (3-14); Neutrophils Absolute Auto 3300 /uL (1500-7000); Neutrophils Percent Auto 26.4 % (50-75); Platelet Count 229 X10^3/uL (150-400); Red Cell Distribution Width 14.3 % (11.6-14.8); White Blood Cell Count 12.7 X10^3/uL (4.5-11.0)
[2019-01-23 10:00] LABS: Add Manual Diff / Slide Review SLIDE REVIEW; Alanine Aminotransferase 33 IU/L (21-72); Albumin 4.4 g/dL (3.5-5.0); Albumin Globulin Ratio 1.3 (1.0-2.8); Alkaline Phosphatase 71 U/L (38-126); Aspartate Aminotransferase 35 IU/L (17-59); BUN Creatinine Ratio 22.5 (6-22); Bilirubin Total 1.2 mg/dL (0.2-1.3); Blood Urea Nitrogen 18 mg/dL (9-20); Calcium 9.2 mg/dL (8.4-10.2); Carbon Dioxide 30 mmol/L (22-32); Chloride 102 mmol/L (98-107); Estimated Glomerular Filt Rate > 60.0 mL/min (>60); Globulin 3.3 g/dL (1.7-4.1); Glucose 105 mg/dL (80-110); HEMOLYSIS < 15 (0-50); Lactate Dehydrogenase 411 U/L (313-618); Potassium 3.9 mmol/L (3.4-5.1); Sodium 140 mmol/L (137-145); Total Protein 7.7 g/dL (6.3-8.2)
[2019-01-23 10:34] LABS: RBC Morphology Normal Morphology
[2019-01-23 11:04] LABS: Vitamin D 25 Hydroxy (D3) 24.9 ng/mL (30.0-100.0)
[2019-01-23 11:20] LABS: Prostate Specific Antigen Scrn 2.36 ng/mL (0.1-4.0)
[2019-01-23 11:21] LABS: TSH w/ Reflex to FT4 3.45 uIU/mL (0.47-4.68)
== END ==
PROVIDERS: Family Provider Student in an Organized Health Care Education/Training Program; PCP Student in an Organized Health Care Education/Training Program
DX: Z12.5 Encounter for screening for malignant neoplasm of prostate (principal); C91.90 Lymphoid leukemia, unspecified not having achieved remission; E55.9 Vitamin D deficiency, unspecified
CPT/HCPCS: 36415; 80053; 82306; 83615; 84443; 85025; G0103

== ENCOUNTER → 2020-12-08 17:28 | Outpatient (CLI) | payer MEDICARE, SELFPAY ==
[2020-12-08] MEDS: COVID-19 VACC #1, MRNA(MOD) 100 MCG/0.5 ML VIAL IM (17:49)
== END ==
PROVIDERS: Family Provider Student in an Organized Health Care Education/Training Program; PCP Student in an Organized Health Care Education/Training Program; Visit Provider Internal Medicine
DX: Z23 Encounter for immunization (principal)
CPT/HCPCS: 0011A; 91301

== ENCOUNTER → 2021-01-06 10:28 | Outpatient (CLI) | payer MEDICARE, SELFPAY ==
[2021-01-06] MEDS: COVID-19 VACC #2, MRNA(MOD) 100 MCG/0.5 ML VIAL IM (10:37)
== END ==
PROVIDERS: Family Provider Student in an Organized Health Care Education/Training Program; PCP Student in an Organized Health Care Education/Training Program; Visit Provider Internal Medicine
DX: Z23 Encounter for immunization (principal)
CPT/HCPCS: 0012A; 91301

== ENCOUNTER → 2021-09-17 09:03 | Outpatient (CLI) | payer MEDICARE, SELFPAY ==
[2021-09-17] MEDS: COVID-19 VACC #3, MRNA(MOD) 50 MCG/0.25 ML VIAL IM (09:13)
== END ==
PROVIDERS: Family Provider Student in an Organized Health Care Education/Training Program; PCP Student in an Organized Health Care Education/Training Program; Visit Provider Internal Medicine
DX: Z23 Encounter for immunization (principal)
CPT/HCPCS: 0013A; 91301

== ENCOUNTER → 2023-02-28 11:04 | Outpatient (CLI) | payer MEDICARE, SELFPAY ==
[2023-02-28 11:23] LABS: Add Manual Diff / Slide Review NO; Basophils Absolute Auto 100 /uL (0-100); Basophils Percent Auto 0.6 % (0-2); Eosinophils Absolute Auto 300 /uL (0-450); Eosinophils Percent Auto 2.2 % (2-4); Hematocrit 46.9 % (41-53); Hemoglobin 15.4 g/dL (13.5-17.5); Lymphocytes Absolute Auto 6400 /uL (1100-4500); Lymphocytes Percent Auto 54.9 % (25-40); Mean Corpuscular HGB Conc 32.9 % (30-36); Mean Corpuscular Hemoglobin 31.7 PG (26-34); Mean Corpuscular Volume 96.5 fL (80-100); Monocytes Absolute Auto 1200 /uL (0-900); Monocytes Percent Auto 10.4 % (3-14); Neutrophils Absolute Auto 3700 /uL (1500-7000); Neutrophils Percent Auto 31.9 % (50-75); Platelet Count 212 X10^3/uL (150-400); Red Blood Cell Count 4.86 X10^6/uL (4.5-5.9); Red Cell Distribution Width 14.4 % (11.6-14.8); White Blood Cell Count 11.6 X10^3/uL (4.5-11.0)
[2023-02-28 11:39] LABS: Alanine Aminotransferase 22 IU/L (<50); Albumin 3.9 g/dL (3.5-5.0); Albumin Globulin Ratio 1.1 (1.0-2.8); Alkaline Phosphatase 64 U/L (38-126); Aspartate Aminotransferase 29 IU/L (17-59); BUN Creatinine Ratio 29.6 (6-22); Bilirubin Total 0.8 mg/dL (0.2-1.3); Blood Urea Nitrogen 21 mg/dL (9-20); Calcium 9.3 mg/dL (8.4-10.2); Carbon Dioxide 32 mmol/L (22-32); Chloride 103 mmol/L (98-107); Estimated Glomerular Filt Rate > 60 mL/min (>60); Globulin 3.5 g/dL (1.7-4.1); Glucose 94 mg/dL (80-110); HEMOLYSIS < 15 (0-50); Lactate Dehydrogenase 164 U/L (120-246); Potassium 4.1 mmol/L (3.4-5.1); Sodium 138 mmol/L (137-145); Total Protein 7.4 g/dL (6.3-8.2)
[2023-02-28 12:43] LABS: Cholesterol 188 mg/dL (140-199); HDL Cholesterol 65 mg/dL (40-60); LDL Cholesterol Calculated 100 mg/dL (<100); Triglycerides 114 mg/dL (35-150); Uric Acid 3.8 mg/dL (3.5-8.5)
[2023-02-28 13:12] LABS: Prostate Specific Antigen 2.13 ng/mL (0.10-4.00)
[2023-02-28 13:34] LABS: Hep C Virus Ab w/Reflex Quant NEGATIVE s/c (NEGATIVE)
== END ==
PROVIDERS: Internal Medicine Hematology & Oncology; Family Provider Student in an Organized Health Care Education/Training Program; PCP Student in an Organized Health Care Education/Training Program; Referring Provider Urology; Visit Provider Urology
DX: E78.5 Hyperlipidemia, unspecified (principal); M10.9 Gout, unspecified; Z11.59 Encounter for screening for other viral diseases; R39.9 Unspecified symptoms and signs involving the genitourinary system; C91.90 Lymphoid leukemia, unspecified not having achieved remission; R33.9 Retention of urine, unspecified; R35.1 Nocturia
CPT/HCPCS: 36415; 80053; 80061; 82232; 83615; 84153; 84550; 85025; 86803

== ENCOUNTER 2023-03-18 13:06 | Emergency (ER) | payer MEDICARE, SELFPAY ==
--- NOTE | 2023-03-18 13:13 | ED.GENADULT ---
HPI - General Adult General Chief complaint: Urogenital-Male Stated complaint: unable to urinate Time Seen by Provider: 03/18/23 13:10 Source: patient and family Mode of arrival: Ambulatory Limitations: no limitations History of Present Illness HPI narrative: 87-year-old male. Has had issues with prostate in the past. Did recently see urology. Had a postvoid residual during that visit of 31. According to the urology note he has had incomplete voiding issues in the past. Has been on tamsulosin but became dizzy on this medication. He is here in the emergency department because he has not been able to urinate since last evening. He states he feels like he needs to urinate but can not. No fevers. Has never had a urinary catheter in the past. Related Data Home Medications Medication Instructions Recorded Confirmed aspirin 325 mg tablet,delayed 162.5 mg PO QDAY ##0 05/01/13 03/09/23 release Previous Rx's Medication Instructions Recorded allopurinol 300 mg tablet 300 mg PO DAILY #90 tabs 10/26/22 meloxicam 7.5 mg tablet 7.5 mg PO DAILY #90 tabs 10/26/22 simvastatin 40 mg tablet 40 mg PO DAILY #90 tabs 10/26/22 Allergies Allergy/AdvReac Type Severity Reaction Status Date / Time No Known Drug Allergies Allergy Verified 03/09/23 10:01 Review of Systems Constitutional Constitutional: Reports system reviewed and no additional complaints, except as documented Gastrointestinal Gastrointestinal: Reports system reviewed and no additional complaints, except as documented Genitourinary Genitourinary: Reports system reviewed and no additional complaints, except as documented Patient History Medical History Alcoholism (09/11/15) CLL (chronic lymphocytic leukemia) Coronary artery disease (2001) Dyslipidemia Gout (2014) Lower urinary tract symptoms Spontaneous rupture of spleen Surgical History (Updated 02/17/22 @ 10:51 by Nenita Sinclair MD) Anesthesia H/O heart artery stent (2001) 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 Father Heart disease Emphysema lung Mother Alzheimer's disease Social History Smoking Status: Former smoker alcohol intake: current substance use type: does not use Smoking Status: Former smoker alcohol intake frequency: 0-2 drinks per day Substance Use Type: does not use Exam Initial Vital Signs Initial Vital Signs: Vital Signs Temperature 97.9 F 03/18/23 13:15 Pulse Rate 103 H 03/18/23 13:15 Respiratory Rate 16 03/18/23 13:15 Blood Pressure 203/106 H 03/18/23 13:15 Pulse Oximetry 96 03/18/23 13:15 Oxygen Delivery Method Room Air 03/18/23 13:15 Const General: cooperative and comfortable HENMT Head: normal to inspection and normocephalic GI Inspection: distended Palpation: firm Neuro General: patient alert, patient awake and moves all extremities Extrem General: normal to inspection Course Orders Ordered: ED Orders 03/18/23 14:00 Urine Microscopic Stat Discontinued Medications Lidocaine HCl (Lidocaine 2% (Glydo) 6 Ml Gel) 6 ml TOP NOW ONE Stop: 03/18/23 13:15 Last Admin: 03/18/23 14:04 Dose: 6 ml Documented By: NR Vital Signs Vital signs: Vital Signs - 8 hr 03/18/23 13:15 Temperature 97.9 F Pulse Rate 103 H Respiratory Rate 16 Blood Pressure 203/106 H Pulse Oximetry 96 Oxygen Delivery Method Room Air Medical Decision Making Lab Data Labs: Urine Dip Bedside Urine Glucose Negative Bedside Urine Bilirubin - Negative Bedside Urine Ketone +/- 5 Urine Specific [place] 1.015 Bedside Urine Occult Blood +/- Bedside Urine pH 6.0 Bedside Urine Protein + 30 Bedside Urine Urobilinogen - Negative Bedside Urine Nitrite - Negative Bedside Urine Leukocytes - Negative Esterase Point of care testing: Urine Dip Bedside Urine Glucose Negative Bedside Urine Bilirubin - Negative Bedside Urine Ketone +/- 5 Urine Specific [place] 1.015 Bedside Urine Occult Blood +/- Bedside Urine pH 6.0 Bedside Urine Protein + 30 Bedside Urine Urobilinogen - Negative Bedside Urine Nitrite - Negative Bedside Urine Leukocytes - Negative Esterase MDM Narrative Medical decision making narrative: Patient did have an acute urinary retention and after placement of Osorio catheter had a return of approximately 1 L of urine. He does have hematuria but no signs of infection. Review of his medical record shows that he had a relatively unremarkable urologic visit a couple weeks ago. There was concern about his ability to tolerate the Flomax. We will send him home with a urinary catheter in place and instructions to contact his urologist on Monday for follow-up. He was given return precautions. He expressed understanding and agreement. Discharge Plan Departure Patient Disposition: Home Clinical Impression: Acute urinary retention Instructions: How to Care for Your Osorio Catheter -- Male, DI for Urinary Retention in Men Activity Restrictions/Additional Instructions: Recommend that you continue to take all of your medications as directed. On Monday morning contact your urologist office for a follow-up. Return to the emergency department for new or worsening symptoms. Prescriptions: No Action aspirin 325 MG tablet,delayed release (DR/EC) 162.5 mg PO QDAY Qty: 0 allopurinol 300 mg tablet 300 mg PO DAILY Qty: 90 3RF meloxicam 7.5 mg tablet 7.5 mg PO DAILY Qty: 90 3RF simvastatin 40 mg tablet 40 mg PO DAILY Qty: 90 3RF Referrals: Torin Conner MD [Primary Care Provider] - Stand Alone Forms: Patient Portal/API
[2023-03-18 13:15] VITALS: BP 203/106; PULSE 103; RESP 16; TEMP 36.6; O2SAT 96; BMI 27.3
[2023-03-18] MEDS: LIDOCAINE 2% (GLYDO) 6 ML GEL TOP (14:04)
[2023-03-18 14:48] LABS: Bacteria Urine None Seen; RBC Urine None Seen (0-5/HPF); Squamous Epithelial Cell Urine None Seen (0-5/HPF); WBC Urine 0-1/HPF (0-5/HPF)
[2023-03-18 14:49] LABS: Culture Indicated Urine Cult Not Indicated
[2023-03-18 15:16] VITALS: BP 185/98; PULSE 107; RESP 20; O2SAT 96
== END 2023-03-18 15:19 | disposition home or self-care (01) ==
PROVIDERS: Emergency Provider Emergency Medicine; Family Provider Student in an Organized Health Care Education/Training Program; PCP Student in an Organized Health Care Education/Training Program
DX: R33.9 Retention of urine, unspecified (principal)
CPT/HCPCS: 51798; 81003; 81015; 99282; 99283

== ENCOUNTER → 2023-04-05 10:43 | Outpatient (CLI) | payer MEDICARE, SELFPAY | PROVIDERS: Family Provider Student in an Organized Health Care Education/Training Program; PCP Student in an Organized Health Care Education/Training Program; Visit Provider Urology | DX: R39.9 Unspecified symptoms and signs involving the genitourinary system (principal); Z97.8 Presence of other specified devices; R33.9 Retention of urine, unspecified | CPT/HCPCS: 51798; 52000; 81002; 87077; 87086; 87186 ==

== ENCOUNTER 2023-04-06 12:16 | Observation (INO) | payer MEDICARE, SELFPAY ==
[2023-04-06] VITALS (10 sets, daily range): BP systolic 119–176; BP diastolic 58–86; PULSE 86–101; RESP 15–27; TEMP 36.6–36.7; O2SAT 92–99; BMI 28.2
--- NOTE | 2023-04-06 12:21 | DI.CT.S_ITS ---
PROCEDURE: CT STROKE INDICATIONS: stroke, L sided weakness TECHNIQUE: Noncontrast 4.5 mm thick angled axial sections acquired from the foramen magnum to the vertex, with coronal reformats. For radiation dose reduction, the following was used: automated exposure control, adjustment of mA and/or kV according to patient size. COMPARISON: None. FINDINGS: Image quality: Excellent. CSF spaces: Basal cisterns are patent. No extra-axial fluid collections. The ventricles are symmetric in size and shape. Brain: No intracranial bleeds or masses. There is moderate cerebral volume loss for age, with resultant ventricular and sulcal prominence. There are extensive periventricular and deep white matter chronic small vessel ischemic changes. There is intracranial internal carotid artery atherosclerosis. Skull and face: Calvarium and visualized facial bones appear intact, without suspicious lesions. Sinuses: Visualized sinuses and mastoids are clear. IMPRESSION: 1. CT head without acute intracranial abnormalities or acute calvarial fractures. 2. Age-related senescent changes and sequela of chronic small vessel ischemic disease. Findings were discussed with Dr. Dalton at 1251 hrs. This study fulfills neurological imaging criteria for inclusion or exclusion of acute stroke therapies based on available published neurological guidelines. Dictated by: John Kothari M.D. on 04/06/2023 at 12:48 Approved by: John Kothari M.D. on 04/06/2023 at 12:51
--- NOTE | 2023-04-06 12:22 | DI.CT.S_ITS ---
PROCEDURE: CT ANGIO HEAD AND NECK INDICATIONS: stroke, L sided weakness TECHNIQUE: After the administration of intravenous contrast, 1 mm thick sections acquired from the aortic arch through the [place] of [place]. Post-contrast 4.5 mm thick sections then re-acquired from the foramen magnum to the vertex. 3-dimensional hgmbeil-checuymqk-coixuvvcev (MIP) and/or volume rendering reformats were acquired of the central intracranial vasculature and neck separately. For radiation dose reduction, the following was used: automated exposure control, adjustment of mA and/or kV according to patient size. COMPARISON: [facility], CT, CT STROKE, 04/06/2023, 12:29. [facility], CT, CT HEAD/BRAIN WO CON, 09/07/2018, 14:49. FINDINGS: Image quality: Excellent. BRAIN: CSF spaces: Ventricles are normal in size and shape. Basal cisterns are patent. No extra-axial fluid collections. Brain: No midline shift. No intracranial bleeds or masses. Severe small vessel ischemic changes in periventricular white matter. Moderate cerebral volume loss. Skull and face: Calvarium and facial bones appear intact, without suspicious lesions. Orbits appear normal. Sinuses: Sinuses and mastoids are clear. HEAD CT ANGIOGRAPHY: Anterior circulation: Intracranial internal carotid arteries are normal in size and flow. There are calcified plaques in cavernous segment of the internal carotid arteries bilaterally. The flow within the paired anterior cerebral arteries is normal and symmetric. The flow within the middle cerebral arteries is normal and symmetric. The anterior communicating artery is seen. No aneurysms are seen. Posterior circulation: Visualized portions of the vertebral arteries demonstrate normal caliber, and join to form a normal appearing basilar artery. Flow within the posterior cerebral arteries is normal and symmetric. No aneurysms are seen. NECK CT ANGIOGRAPHY: Carotid system: The great vessels demonstrate a conventional anatomy as they arise from the aortic arch. The origins of the common carotid arteries appear patent. The common carotid arteries demonstrate normal caliber and courses. The bifurcation regions are both widely patent. Calcified plaques at the carotid bifurcations bilaterally, right greater than left. There is approximately 30% stenosis of the proximal right internal carotid artery. No significant stenosis in the left internal carotid artery. Posterior circulation: The origins of the vertebral arteries both appear widely patent. There is approximately 60% stenosis at the origin of the right vertebral artery. The more superior extracranial portions of both vertebral arteries also demonstrate normal courses and calibers. They join to form a normal appearing basilar artery. Soft tissues: Visualized neck soft tissues demonstrate no suspicious abnormalities. Bones: No suspicious bony lesions. Visualized cervical spine appears normally aligned. IMPRESSION: 1. No acute intracranial abnormalities. Moderate cerebral volume loss and severe periventricular white matter chronic small vessel ischemic changes. 2. No hemodynamic significant stenosis in anterior or posterior circulations. 3. Calcified plaques at the carotid bifurcations bilaterally, right greater than left, and in the cavernous segment of the internal carotid arteries bilaterally. 4. There is approximately 30% stenosis of the proximal right proximal internal carotid artery. 5. Approximately 60% stenosis of the right vertebral artery origin. Any quantitative measurements of stenosis were performed using NASCET criteria. Dictated by: Ab Pack M.D. on 04/06/2023 at 14:15 Approved by: Ab Pack M.D. on 04/06/2023 at 14:23
--- NOTE | 2023-04-06 12:23 | ED_ITS ---
HPI - General Adult General Chief complaint: Neuro Symptoms/Deficit Stated complaint: Code Stroke Time Seen by Provider: 04/06/23 12:21 History of Present Illness HPI narrative: 87-year-old male former smoker with history of CLL, hyperlipidemia, coronary artery disease presents by EMS for evaluation of code stroke. He would last been seen normal by neighbors at about 10 15 or 10 30 and then about 15 minutes prior to his arrival they found him down out in his yd and had trouble finding words, slurring of words and left-sided upper and lower extremity flaccidity. He was unable to communicate and confused for the duration and had complete flaccidity even while they were trying to place an IV. By his arrival he was more alert and has regained his strength. He is activated as a code stroke nonetheless. Related Data Home Medications Medication Instructions Recorded Confirmed aspirin 325 mg tablet,delayed 162.5 mg PO QDAY ##0 05/01/13 04/06/23 release Previous Rx's Medication Instructions Recorded allopurinol 300 mg tablet 300 mg PO DAILY #90 tabs 10/26/22 meloxicam 7.5 mg tablet 7.5 mg PO DAILY #90 tabs 10/26/22 simvastatin 40 mg tablet 40 mg PO DAILY #90 tabs 10/26/22 ciprofloxacin HCl 500 mg tablet 500 mg PO BID Osorio catheter #10 04/05/23 tabs tadalafil 5 mg tablet (Cialis) 5 mg PO DAILY #30 tabs 04/05/23 Allergies Allergy/AdvReac Type Severity Reaction Status Date / Time No Known Drug Allergies Allergy Verified 04/06/23 09:19 Review of Systems Review of Systems Narrative: GENERAL: Denies chills, fatigue, malaise, fever, sweats. HEENT: Denies sinus pain, ear pain, sore throat, difficulty swallowing, dizziness. RESPIRATORY: Denies dyspnea, cough, wheezing, hemoptysis, sputum. CARDIOVASCULAR: Denies chest pain, palpitations, orthopnea, edema, GASTROINTESTINAL: Denies nausea, vomiting, abdominal pain, diarrhea, constipation, melena. : Denies dysuria, frequency, incontinence, hematuria, urinary retention. MUSCULOSKELETAL: denies weakness, joint pain, or bony pain SKIN: Denies rash, skin lesions, or other NEUROLOGIC: See HPI PSYCHIATRIC: No concerning psychosocial issues. 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 Father Heart disease Emphysema lung Mother Alzheimer's disease Social History Smoking Status: Former smoker alcohol intake: current substance use type: does not use Smoking Status: Former smoker alcohol intake frequency: 0-2 drinks per day Substance Use Type: does not use Exam Narrative Exam Narrative: GENERAL: [87] year old patient appears stated age. Well-developed patient, in mild distress. GCS 14, slightly confused HEAD: Atraumatic. Normocephalic. EYES: Pupils equal round and reactive. Extraocular motions intact. No scleral icterus. No injection or drainage. ENT: Nose without bleeding, purulent drainage. Throat without erythema, tonsillar hypertrophy or exudate. Airway patent. NECK: Trachea midline. Non tender CARDIOVASCULAR: Regular rate and rhythm without murmurs, gallops, or rubs. RESPIRATORY: Clear to auscultation. Breath sounds equal bilaterally. No wheezes, rales, or rhonchi. GASTROINTESTINAL: Abdomen soft, non-tender, nondistended. EXTREMITIES: No edema or joint tenderness. BACK: Nontender without deformity or crepitance. No flank tenderness. NEURO: AOx3. SKIN: No rash or erythema of visible areas Initial Vital Signs Initial Vital Signs: Vital Signs Temperature 98 F 04/06/23 12:20 Pulse Rate 90 04/06/23 12:20 Respiratory Rate 18 04/06/23 12:20 Blood Pressure 119/58 L 04/06/23 12:20 Pulse Oximetry 99 04/06/23 12:20 Oxygen Delivery Method Room Air 04/06/23 12:20 Course Orders Ordered: ED Orders 04/06/23 12:21 CT Stroke Stat COVID19 -Nasal RAPID Stat Urinalysis and Microscopic Stat Urine Drug Screen, Rapid Stat 04/06/23 12:22 CT angio head and neck Stat 04/06/23 12:29 Complete Blood Count AUTO DIFF Stat Comprehensive Metabolic Panel Stat Ethanol (ETOH) Stat PTT Partial Thromboplastin Gallo Stat Prothrombin Time INR Stat Troponin & CK Cardiac Panel Stat 04/06/23 13:30 EKG-12 Lead Stat 04/06/23 14:30 Chest [XR chest 1V] Stat Acetaminophen (Acetaminophen 325 Mg Tablet) 650 mg PO Q6H PRN PRN Reason: Fever/Mild Pain (1-3) Aspirin (Aspirin Ec 81 Mg Tablet) 81 mg PO DAILY [facility] Clopidogrel Bisulfate (Clopidogrel 75 Mg Tablet) 75 mg PO DAILY [facility] Stop: 04/27/23 08:59 Enoxaparin Sodium (Enoxaparin 40 Mg/0.4 Ml Syringe) 40 mg SUBCUT DAILY [facility] Labetalol HCl (Labetalol 20 Mg/4 Ml Syringe) 10 mg IV Q5MIN PRN PRN Reason: SBP >220 or DBP >110 Melatonin (Melatonin 3 Mg Tablet) 6 mg PO BEDTIME PRN PRN Reason: Insomnia Naloxone HCl (Naloxone 0.4 Mg/Ml Vial) 0.2 mg IV Q2MIN PRN PRN Reason: Opiate Reversal Non-Formulary Medication (Allopurinol) 300 mg PO DAILY [facility] Non-Formulary Medication (Simvastatin) 40 mg PO BEDTIME [facility] Discontinued Medications Aspirin (Aspirin 81 Mg Chew Tab) 324 mg PO NOW ONE Stop: 04/06/23 14:31 Clopidogrel Bisulfate (Clopidogrel 75 Mg Tablet) 300 mg PO NOW ONE Stop: 04/06/23 14:36 Vital Signs Vital signs: Vital Signs - 8 hr 04/06/23 12:20 04/06/23 12:23 04/06/23 12:39 Temperature 98 F Pulse Rate 90 86 99 H Respiratory Rate 18 15 Blood Pressure 119/58 L Pulse Oximetry 99 92 93 Oxygen Delivery Method Room Air 04/06/23 12:40 04/06/23 12:40 04/06/23 13:00 Temperature Pulse Rate 96 H Respiratory Rate 16 Blood Pressure 135/64 135/63 Pulse Oximetry 95 Oxygen Delivery Method Room Air 04/06/23 13:00 Temperature Pulse Rate 91 H Respiratory Rate 17 Blood Pressure Pulse Oximetry 93 Oxygen Delivery Method Room Air Medical Decision Making Lab Data 04/06/23 12:29 04/06/23 12:29 Labs: Lab Results 04/06/23 04/06/23 04/06/23 Range/Units 12:29 12:29 12:29 WBC 14.4 H (4.5-11.0) X10^3/uL RBC 4.37 L (4.5-5.9) X10^6/uL Hgb 13.9 (13.5-17.5) g/dL Hct 41.9 (41-53) % MCV 96.0 (80-100) fL MCH 31.8 (26-34) PG MCHC 33.1 (30-36) % RDW 14.2 (11.6-14.8) % Plt Count 236 (150-400) X10^3/uL Neut % (Auto) 68.0 (50-75) % Lymph % (Auto) 22.9 L (25-40) % [place] % (Auto) 7.5 (3-14) % Eos % (Auto) 0.9 L (2-4) % Baso % (Auto) 0.7 (0-2) % Neut # (Auto) 9800 H (7815-8863) /uL Lymph # (Auto) 3300 (9030-4253) /uL [place] # (Auto) 1100 H (0-900) /uL Eos # (Auto) 100 (0-450) /uL Baso # (Auto) 100 (0-100) /uL PT 11.8 (10.1-12.7) SECONDS INR 1.0 (0.9-1.3) APTT 24 L (26-36) SECONDS Sodium 138 (137-145) mmol/L Potassium 4.2 (3.4-5.1) mmol/L Chloride 104 (98-107) mmol/L Carbon Dioxide 27 (22-32) mmol/L BUN 13 (9-20) mg/dL Creatinine 1.01 (0.66-1.25) mg/dL Estimated GFR > 60 (>60) mL/min BUN/Creatinine Ratio 12.9 (6-22) Glucose 144 H (80-110) mg/dL Calcium 8.9 (8.4-10.2) mg/dL Total Bilirubin 0.8 (0.2-1.3) mg/dL AST 30 (17-59) IU/L ALT 21 (<50) IU/L Alkaline Phosphatase 53 (38-126) U/L Total Creatine Kinase 104 (55-170) U/L CK-MB (CK-2) 1.28 (<2.37) ng/mL CK-MB (CK-2) Rel Index 1.2 L (1.5-5.0) % Troponin I < 0.012 (0.01-0.034) ng/mL Total Protein 6.6 (6.3-8.2) g/dL Albumin 3.8 (3.5-5.0) g/dL Globulin 2.8 (1.7-4.1) g/dL Albumin/Globulin Ratio 1.4 (1.0-2.8) Ethyl Alcohol < 10 ( - 10) mg/dL MDM Narrative Medical decision making narrative: CC: 87-year-old male with left-sided weakness activated as a code stroke Complicating co-morbidities: Age, CLL, hyperlipidemia Data collected from: Patient Medical records reviewed: Prior notes reviewed in our EMR Differential considered, but not limited to: Stroke, TIA, brain bleed versus other Exam documented above, pertinent findings include: Slight confusion, NIH stroke scale 1 for confusion, patient no longer tPA candidate Lab Test results independently reviewed as above. Pertinent findings: Independently reviewed EKG as above Imaging studies independently reviewed: CT of the head without acute findings, CTA notes Scores Used: NIHSS 0 Consultations: discussed with hospitalist Re-evaluations: at apparent baselilne Discussion: Patient found down outside of his house, last seen normal about 2 hours prior to arrival and presented as code stroke. He had rapid improvement his left-sided symptoms and is not a candidate for tPA given the resolution of symptoms. There are no acute findings on imaging or labs. Patient requires hospitalization for further workup and characterization Discharge Plan Departure Patient Disposition: Admitted as Observation Clinical Impression: Brain TIA Admit Date/Time: 04/06/23 14:32 Admit Provider: Scottie Edwards
[2023-04-06 12:46] LABS: Add Manual Diff / Slide Review NO; Basophils Absolute Auto 100 /uL (0-100); Basophils Percent Auto 0.7 % (0-2); Eosinophils Absolute Auto 100 /uL (0-450); Eosinophils Percent Auto 0.9 % (2-4); Hematocrit 41.9 % (41-53); Hemoglobin 13.9 g/dL (13.5-17.5); Lymphocytes Absolute Auto 3300 /uL (1100-4500); Lymphocytes Percent Auto 22.9 % (25-40); Mean Corpuscular HGB Conc 33.1 % (30-36); Mean Corpuscular Hemoglobin 31.8 PG (26-34); Monocytes Absolute Auto 1100 /uL (0-900); Monocytes Percent Auto 7.5 % (3-14); Neutrophils Absolute Auto 9800 /uL (1500-7000); Platelet Count 236 X10^3/uL (150-400); Red Blood Cell Count 4.37 X10^6/uL (4.5-5.9); Red Cell Distribution Width 14.2 % (11.6-14.8); White Blood Cell Count 14.4 X10^3/uL (4.5-11.0)
[2023-04-06 12:49] LABS: Prothrombin Time 11.8 SECONDS (10.1-12.7)
[2023-04-06 12:52] LABS: PTT Partial Thromboplastin Tim 24 SECONDS (26-36)
[2023-04-06 12:54] LABS: Alanine Aminotransferase 21 IU/L (<50); Albumin 3.8 g/dL (3.5-5.0); Albumin Globulin Ratio 1.4 (1.0-2.8); Alkaline Phosphatase 53 U/L (38-126); Aspartate Aminotransferase 30 IU/L (17-59); BUN Creatinine Ratio 12.9 (6-22); Bilirubin Total 0.8 mg/dL (0.2-1.3); Blood Urea Nitrogen 13 mg/dL (9-20); Calcium 8.9 mg/dL (8.4-10.2); Carbon Dioxide 27 mmol/L (22-32); Chloride 104 mmol/L (98-107); Creatine Kinase 104 U/L (55-170); Estimated Glomerular Filt Rate > 60 mL/min (>60); Ethanol (ETOH) < 10 mg/dL; Globulin 2.8 g/dL (1.7-4.1); Glucose 144 mg/dL (80-110); Potassium 4.2 mmol/L (3.4-5.1); Sodium 138 mmol/L (137-145); Total Protein 6.6 g/dL (6.3-8.2)
[2023-04-06 13:05] LABS: Troponin I < 0.012 ng/mL (0.01-0.034)
[2023-04-06 13:09] LABS: CKMB % Relative Index 1.2 % (1.5-5.0); Creatine Kinase MB 1.28 ng/mL (<2.37); HEMOLYSIS < 15 (0-50)
--- NOTE | 2023-04-06 14:30 | DI.RAD.S_ITS ---
PROCEDURE: XR CHEST 1V INDICATIONS: stroke evalua TECHNIQUE: One view of the chest was acquired. COMPARISON: [facility], CR, XR CHEST 1V, 09/07/2018, 14:03. FINDINGS: Surgical changes and devices: None. Lungs and pleura: Diffuse interstitial prominence. There lower lobe scars and atelectasis bilaterally. No pleural effusions or pneumothorax. Mediastinum: Mediastinal contours appear normal. Heart size is normal. Bones and chest wall: No suspicious bony lesions. Overlying soft tissues appear unremarkable. IMPRESSION: 1. Bilateral lower lobe scars and atelectasis. Dictated by: Ab Pack M.D. on 04/06/2023 at 15:58 Approved by: Ab Pack M.D. on 04/06/2023 at 15:58
--- NOTE | 2023-04-06 14:36 | DI.MRI.S_ITS ---
PROCEDURE: MR HEAD/BRAIN WO CON INDICATIONS: TIA, left side flaccid then resolved TECHNIQUE: Non-contrast axial T1 spin echo, axial T2 fast spin echo, sagittal and axial FLAIR, coronal T2 fast spin echo, axial gradient echo, axial diffusion and ADC through the brain. COMPARISON: [facility], CT, CT ANGIO HEAD AND NECK, 04/06/2023, 12:29. [facility], CT, CT STROKE, 04/06/2023, 12:29. [facility], CT, CT HEAD/BRAIN WO CON, 09/07/2018, 14:49. FINDINGS: Image quality: Exam is limited secondary to patient positioning and utilization of coil placement. Extensive artifact is present. CSF spaces: Ventricles appear symmetric in size and shape. Basal cisterns are patent. No extra-axial fluid collections. Brain: No intracranial bleeds or mass effects. There is cerebral volume loss for age. There are periventricular and deep white matter chronic small vessel ischemic changes. Brainstem appears normal. Diffusion-weighted images show no acute ischemic insults. No chronic ischemic insults. Normal intravascular flow voids are present. Skull and face: Calvarial bone marrow is normal in signal. Orbits are normal. Sinuses: Sinuses and mastoids are clear. IMPRESSION: Extensive artifact secondary to patient positioning and ability for coil placement. Repeat study is recommended when patient is able to better tolerate exam. No gross acute intracranial process. Moderate atrophy and chronic microvascular ischemic change. Dictated by: Laurie Rodrigues M.D. on 04/06/2023 at 15:28 Approved by: Laurie Rodrigues M.D. on 04/06/2023 at 15:29
--- NOTE | 2023-04-06 14:43 | PM.HP.1 ---
History of Present Illness History of Present Illness Date Patient Seen: 04/06/23 Time Patient Seen: 17:09 Chief complaint: Code Stroke Narrative: Heath Mcdonald is an 87yo M with PMH of alcoholism, CLL, CAD s/p coronary stent, HLD, gout, and BPH who presents with possible TIA after being found down with left-sided deficits. Patient only remembers watering plants outside when he suddenly became dizzy so lowered himself to the ground. He thinks he then may have passed out. He next remembers waking up with EMS present. He had confusion, slurred speech and was flaccid on his left side. This lasted for several minutes then resolved en route to the hospital. He currently denies any weakness, facial droop or speech difficulty. His MRI brain was degraded from motion artifact and positioning. Patient prefers not to repeat MRI. He notes starting a new medication this morning, flomax for his BPH. However he previously had dizziness with flomax so he was stopped. He thinks the med contributed to his event. He denies CP, NV, SOB, abd pain or diarrhea. In the ED patient had a normal head CT. CTA head with no stroke, but severe chronic small vessel ischemic changes, plaques at carotid bifurcations bilaterally R>L, 30% stenosis of right proximal ICA, and 60% stenosis of right vertebral artery origin. NIH was 1 for some confusion. 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 Father Heart disease Emphysema lung Mother Alzheimer's disease Social History Smoking Status: Former smoker alcohol intake: current substance use type: does not use Meds Home Medications and Allergies Home Medications Medication Instructions Recorded Confirmed Type aspirin 325 mg tablet,delayed 162.5 mg PO QDAY ##0 05/01/13 04/06/23 History release allopurinol 300 mg tablet 300 mg PO DAILY #90 tabs 10/26/22 04/06/23 Rx meloxicam 7.5 mg tablet 7.5 mg PO DAILY #90 tabs 10/26/22 04/06/23 Rx simvastatin 40 mg tablet 40 mg PO DAILY #90 tabs 10/26/22 04/06/23 Rx ciprofloxacin HCl 500 mg tablet 500 mg PO BID Cervantes catheter #10 04/05/23 04/06/23 Rx tabs tadalafil 5 mg tablet (Cialis) 5 mg PO DAILY #30 tabs 04/05/23 04/06/23 Rx Allergies Allergy/AdvReac Type Severity Reaction Status Date / Time No Known Drug Allergies Allergy Verified 04/06/23 09:19 Review of Systems Review of Systems Narrative: All other systems reviewed with the patient and are negative unless otherwise stated. Exam Vital Signs (past 8 hours): - 04/06/23 12:20 04/06/23 12:23 04/06/23 12:39 Temperature 98 F Pulse Rate 90 86 99 H Respiratory Rate 18 15 Blood Pressure 119/58 L Pulse Oximetry 99 92 93 Oxygen Delivery Method Room Air 04/06/23 12:40 04/06/23 12:40 04/06/23 13:00 Temperature Pulse Rate 96 H Respiratory Rate 16 Blood Pressure 135/64 135/63 Pulse Oximetry 95 Oxygen Delivery Method Room Air 04/06/23 13:00 Temperature Pulse Rate 91 H Respiratory Rate 17 Blood Pressure Pulse Oximetry 93 Oxygen Delivery Method Room Air Oxygen Delivery Method Room Air Narrative Exam Narrative: GEN: no acute distress HEENT: moist mucous membranes, PERRL NECK: trachea midline, no JVD CV: regular rate and rhythm, no murmurs PULM: clear bilaterally ABD: soft, nontender, nondistended, no organomegaly EXT: warm and well perfused with no edema NEURO: awake, alert, oriented, no focal deficits, no facial droopl, strength intact in extremities bilaterally Objective Labs 04/06/23 12:29 04/06/23 12:29 Labs: Laboratory Results - last 24 hr 04/06/23 04/06/23 04/06/23 12:29 12:29 12:29 WBC 14.4 H RBC 4.37 L Hgb 13.9 Hct 41.9 MCV 96.0 MCH 31.8 MCHC 33.1 RDW 14.2 Plt Count 236 Neut % (Auto) 68.0 Lymph % (Auto) 22.9 L [place] % (Auto) 7.5 Eos % (Auto) 0.9 L Baso % (Auto) 0.7 Neut # (Auto) 9800 H Lymph # (Auto) 3300 [place] # (Auto) 1100 H Eos # (Auto) 100 Baso # (Auto) 100 PT 11.8 INR 1.0 APTT 24 L Sodium 138 Potassium 4.2 Chloride 104 Carbon Dioxide 27 BUN 13 Creatinine 1.01 Estimated GFR > 60 BUN/Creatinine Ratio 12.9 Glucose 144 H Calcium 8.9 Total Bilirubin 0.8 AST 30 ALT 21 Alkaline Phosphatase 53 Total Creatine Kinase 104 CK-MB (CK-2) 1.28 CK-MB (CK-2) Rel Index 1.2 L Troponin I < 0.012 Total Protein 6.6 Albumin 3.8 Globulin 2.8 Albumin/Globulin Ratio 1.4 Ethyl Alcohol < 10 Assessment & Plan Assessment & Plan narrative: # acute TIA -patient's symptoms included dysarthria, confusion and right-sided flaccidity resolved prior to ED arrival -ABCD2 score of 5 indicating high risk TIA -CT head normal, CTA head without stroke but some [place] and plaques -will put on dual anti-platelet therapy with aspirin and Plavix x21 days -echo ordered -MRI degraded from artifact and positioning, unable to rule out stroke. Patient prefers not to repeat it. -tele -change home simvastatin to lipitor 40 nightly -24 hours of permissive HTN # alcohol use -drinks alcohol daily -CIWA -MV, thiamine and folate daily # CLL -WBC 14 currently # BPH -had cervantes removed by Dr. Coronel morning of 04/06 -started on flomax, but will dc given side-effect of dizziness -f/u with urology for ongoing management # gout -continue home allopurinol Code status is full code. DVT prophylaxis with Lovenox. Proxy is daughter Ary. I have reviewed home meds and used all available resources to reconcile the home meds. This patient will be admitted as observation and will require less than 2 midnights of hospital time to treat TIA.
[2023-04-06 15:20] LABS: Appearance Urine UA CLEAR; Bilirubin Urine UA NEGATIVE (NEGATIVE); Color Urine UA YELLOW; Glucose Urine UA NEGATIVE (Negative); Ketones Urine UA TRACE (NEGATIVE); Leukocyte Esterase Urine UA 1+ (NEGATIVE); Nitrite Urine UA NEGATIVE (Negative); Occult Blood Urine UA TRACE-INTACT (Negative); Protein Urine UA NEGATIVE (Negative); Specific Gravity Urine UA <=1.005 (1.000-1.035); Urobilinogen Urine UA 0.2 E.U./dL (0.2); pH Urine UA 6.5 (4.5-8.0)
[2023-04-06 15:22] LABS: Magnesium 2.1 mg/dL (1.6-2.3)
[2023-04-06 15:23] LABS: UR Morphine/Opiate cutoff 300 Negative (Negative); Ur Creatinine Normal (Normal); Ur Specific Gravity Normal (Normal); Urine Amphetamines Negative (Negative); Urine Barbiturates Negative (Negative); Urine Benzodiazepines Negative (Negative); Urine Cocaine Negative (Negative); Urine MDMA Negative (Negative); Urine Methadone Negative (Negative); Urine Methamphetamines Negative (Negative); Urine Oxycodone Negative (Negative); Urine Phencyclidine Negative (Negative); Urine Tetrahydrocannabinol Negative (Negative); Urine Tricyclic Antidepressant Negative (Negative); Urine pH Normal (Normal)
[2023-04-06 15:23] LABS: Cholesterol 148 mg/dL (140-199); HDL Cholesterol 52 mg/dL (40-60); LDL Cholesterol Calculated 71 mg/dL (<100); Triglycerides 126 mg/dL (35-150)
[2023-04-06 15:28] LABS: Bacteria Urine Occasional (0-1); Culture Indicated Urine Specimen Cultured; RBC Urine 0-1/HPF (0-5/HPF); WBC Urine 1-5/HPF (0-5/HPF)
--- NOTE | 2023-04-06 15:41 | DI.ECHO.S_ITS ---
[facility]---------+ [facility] +---------+ : : [address] : : : : [id number] : : : : Phone: [phone]+ Echocardiogram Report + + :Name: AVIVA LONDONO Study Date: 04/06/2023 Height: 66 in : :[facility] ReadingLocation: Weight: 175 lb : : Gender: Male BSA: 1.9 m2 : :: 1935 Age: 87 yrs BP: 176/86 mmHg: :Reason For Study: TIA : :Ordering Physician: Grace, : :Ema Performed By: Oksana Chavarria : :Referring: EMA BERNAL A : + + Interpretation Summary This is a technically difficult study characterized by limited endocardial visualization. Normal sinus rhythm. Normal LV size and wall thickness. Normal wall motion and LV systolic function. EF is 50-55%. Normal chamber sizes. Aortic valve is trileaflet mildly calcified structure which opens well. There is at mild mitral annular calcification. Estimated PA systolic pressure is 33 mm Hg assuming RA pressure of 3 mm Hg. No source of embolism found. No prior study available for comparison. Procedure: A two-dimensional transthoracic echocardiogram with color flow and Doppler was performed. The study quality was technically difficult. There is no prior echocardiogram noted for this patient. The patient was in normal sinus rhythm during the exam. Left Ventricle: The left ventricle is normal in size. The ejection fraction is estimated to be 50-55%. Diastolic parameters suggest a relaxation abnormality of the left ventricle, consistent with probable normal filling pressures. Right Ventricle: The right ventricle is normal size. The right ventricular systolic function is normal. Atria: The left atrial size is normal. Right atrial size is normal. There is no Doppler evidence for an interatrial shunt. Mitral Valve: The mitral valve leaflets are slightly calcified. There is mild mitral stenosis. The mitral valve mean gradient is 3.88 mmHg. There is no mitral regurgitation noted. Aortic Valve: The aortic valve is trileaflet. There is mild aortic valve sclerosis. The aortic valve opens well. There is no aortic valve stenosis. There is trace aortic regurgitation. Tricuspid Valve: The tricuspid valve is normal. There is no tricuspid stenosis. There is trace tricuspid regurgitation. Pulmonic Valve: The pulmonic valve leaflets are thin and pliable; valve motion is normal. There is no pulmonic valvular stenosis. There is trace pulmonic regurgitation. Great Vessels: The aortic root is normal size. The ascending aorta is normal in size. The pulmonary artery is normal size. The IVC is of normal diameter and collapses greater than 50% with a sniff. This suggests a low right atrial pressure of 3 mm Hg. Pericardium/ Pleura There is no pericardial effusion. There is no pleural effusion. MMode/2D Measurements & Calculations LVIDd: 4.0 cm LVOT diam: 1.9 cm LVIDs: 2.6 cm Ao root diam: 3.3 cm FS: 35.0 % asc Aorta Diam: 3.1 cm IVSd: 0.98 cm LVPWd: 0.87 cm LV cárdenas. diameter/BSA (cm/m^2): 2.1 LV sys. diameter/BSA (cm/m^2): 1.4 LA A2 area: 19.5 cm2 RA long axis: 5.1 cm LA A4 area: 18.9 cm2 RA area: 12.1 cm2 LA length (vol): 5.8 cm RA vol: 24.4 ml LA vol: 54.3 ml RA : 12.9 ml/m2 LA vol index: 28.7 ml/m2 TAPSE: 3.3 cm Doppler Measurements & Calculations Ao V2 max: 187.8 cm/sec LVOT Max Brenden: 89.4 cm/sec Ao V2 mean: 123.8 cm/sec LV V1 max P.2 mmHg Ao max P.1 mmHg LV V1 VTI: 20.2 cm Ao mean P.0 mmHg IVETTE(I,D): 1.5 cm2 Ao V2 VTI: 39.6 cm IVETTE(V,D): 1.4 cm2 sev ratio: 0.51 IVETTE indexed to BSA (cm^2/m^2): 0.79 MV E max brenden: 76.4 cm/sec TR max brenden: 263.0 cm/sec MV A max brenden: 128.4 cm/sec TR max P.7 mmHg MV E/A: 0.60 PA pr(Accel): 29.3 mmHg Med Peak E' Brenden: 6.8 cm/sec E/E' med: 11.2 Lat Peak E' Brenden: 8.3 cm/sec E/E' lat: 9.2 E/e' average: 10.2 MV dec time: 0.10 sec MVA(VTI): 1.8 cm2 MV V2 mean: 90.9 cm/sec SV(LVOT): 58.8 ml MV mean P.8 mmHg MV V2 VTI: 32.3 cm Electronically signed by: Heaven Kang M.D. on Reading Physician:04/06/2023 05:29 PM
[2023-04-06 15:53] LABS: TSH w/ Reflex to FT4 6.76 uIU/mL (0.47-4.68)
--- NOTE | 2023-04-06 16:15 | OT.IPNOTE ---
Attempted to see pt but not available as per nursing aid as pt has been seeing multiple people since getting admitted. To check on pt tomorrow for OT cayden.
[2023-04-06] MEDS: ASPIRIN 81 MG CHEW TAB 324 MG PO (16:16)
[2023-04-06] MEDS: CLOPIDOGREL 75 MG TABLET 300 MG PO (16:17)
[2023-04-06] MEDS: FOLIC ACID 1 MG TABLET PO (16:19)
[2023-04-06] MEDS: THIAMINE 100 MG TABLET PO (16:19)
[2023-04-06] MEDS: MULTIVITAMIN 1 TABLET 1 TAB PO (16:20)
[2023-04-06] MEDS: ENOXAPARIN 40 MG/0.4 ML SYRINGE SUBCUT (16:21)
[2023-04-06 16:37] LABS: Free T4, Direct Thyroxine 0.98 ng/dL (0.78-2.19)
[2023-04-06] MEDS: ATORVASTATIN 20 MG TABLET 40 MG PO (20:53)
[2023-04-06 22:53] LABS: MRSA (Nasal) PCR Not Detected (Not Detect)
[2023-04-07] VITALS: BP 95/54; PULSE 87; RESP 17; TEMP 37.2; O2SAT 94
[2023-04-07] MEDS: cefTRIAXone 1,000 MG in SODIUM CHLORIDE 0.9% 100 ML 200 MG IV (00:37)
[2023-04-07 04:00] VITALS: BP 116/67; PULSE 91; RESP 18; TEMP 36.8; O2SAT 94
[2023-04-07 05:39] LABS: Add Manual Diff / Slide Review NO; Basophils Absolute Auto 100 /uL (0-100); Basophils Percent Auto 0.6 % (0-2); Eosinophils Absolute Auto 300 /uL (0-450); Hematocrit 39.6 % (41-53); Hemoglobin 13.3 g/dL (13.5-17.5); Lymphocytes Absolute Auto 3700 /uL (1100-4500); Lymphocytes Percent Auto 39.7 % (25-40); Mean Corpuscular HGB Conc 33.6 % (30-36); Mean Corpuscular Hemoglobin 32.1 PG (26-34); Mean Corpuscular Volume 95.5 fL (80-100); Monocytes Absolute Auto 1200 /uL (0-900); Monocytes Percent Auto 12.5 % (3-14); Neutrophils Absolute Auto 4100 /uL (1500-7000); Neutrophils Percent Auto 44.2 % (50-75); Platelet Count 216 X10^3/uL (150-400); Red Blood Cell Count 4.14 X10^6/uL (4.5-5.9); Red Cell Distribution Width 14.2 % (11.6-14.8); White Blood Cell Count 9.2 X10^3/uL (4.5-11.0)
[2023-04-07 05:47] LABS: Labcorp Hemoglobin (Hb) A1c 5.6 % (4.8-5.6)
[2023-04-07 05:48] LABS: BUN Creatinine Ratio 17.5 (6-22); Blood Urea Nitrogen 14 mg/dL (9-20); Calcium 8.6 mg/dL (8.4-10.2); Carbon Dioxide 30 mmol/L (22-32); Chloride 106 mmol/L (98-107); Estimated Glomerular Filt Rate > 60 mL/min (>60); Glucose 101 mg/dL (80-110); HEMOLYSIS < 15 (0-50); Potassium 4.5 mmol/L (3.4-5.1); Sodium 139 mmol/L (137-145)
[2023-04-07] MEDS: CLOPIDOGREL 75 MG TABLET PO (08:08)
[2023-04-07] MEDS: allopurinoL 100 MG TABLET 300 MG PO (08:08)
[2023-04-07] MEDS: ASPIRIN EC 81 MG TABLET PO (08:08)
[2023-04-07] MEDS: MULTIVITAMIN 1 TABLET 1 TAB PO (08:09)
[2023-04-07] MEDS: ENOXAPARIN 40 MG/0.4 ML SYRINGE SUBCUT (08:09)
[2023-04-07] MEDS: FOLIC ACID 1 MG TABLET PO (08:09)
[2023-04-07] MEDS: THIAMINE 100 MG TABLET PO (08:09)
--- NOTE | 2023-04-07 08:23 | CM.DANOTE ---
Initial DCP Assessment Note Patient is an 87 yo M resident of [place], found by a neighbor down on the ground w/confusion and left sided weakness, EMS called and code stroke activated From chart review, it appears TIA suspected. MRI inconclusive and patient did not want to repeat once he was more alert PCP Torin ZEPEDA/TIBURCIO Met w/patient this morning, introduced role. Patient in good spirits this morning, sitting in chair and watching the news. A+Ox4 Patient's daughter Ary Cobian is the Director of the Care Management dept at so patient known to this CLOTHING WORKER. 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 Patient's spouse Mae also indp w/some memory loss. Supportive family lives in [place] and available to assist patient/spouse as needed Patient appears to be at his functional baseline and is eager to return home w/spouse today. Patient tells this CLOTHING WORKER he thinks he had a bad reaction to new medication for his BPH (patient is established with Dr Coronel, Urology) Plan: Discharge home today w/supportive family and close outpatient follow up recommended CM team available in case any DC needs or concerns arise SASHA Cooper Discharge Planning/Care Management CM Discharge Assessment Start: 04/07/23 08:19 Freq: Status: Active Protocol: Document 04/07/23 08:19 AUGUSTIN (Rec: 04/07/23 08:23 AUGUSTIN [id number]) Discharge Planning Assessment Assigned Wood Miller SASHA Fair DPOA/Assigned Designee Name Mae Mcdonald, spouse Contact Information [phone] Advance Directives? Yes: DPOA Advance Directives on File No History Provided By Patient,Family Member,Medical Record Prior Living Arrangements House Household Members spouse Type of transporation used prior to Drives own vehicle admit Independent with ADL's Yes Is patient alert and oriented? Yes Barriers to Discharge No Comment Home w/supportive family Discharge Plan Home Transportation Arrangement Family Referrals Initiated None needed
--- NOTE | 2023-04-07 08:32 | PC.NURSE ---
Patient is alert and oriented x4. He is excited to be discharged home today. Up ad nora and steady on his feet. NIH score a 0. Medications given whole with water. Patient is reclining in his chair and tolerating breakfast well.
[2023-04-07 09:00] VITALS: BP 167/65; PULSE 72; RESP 18; TEMP 36.8; O2SAT 98
--- NOTE | 2023-04-07 09:35 | OT.IP.EVAL ---
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) History of colonoscopy (06/17/11) History of colonoscopy with polypectomy (2003) History of right inguinal hernia repair (04/10/13) History of right inguinal hernia repair (11/20/14) Hx of circumcision Status post hernia repair (2013) Occupational Therapy Inpatient Evaluation/Re-Eval M1 PT/OT-IP Prior Functional Status Start: 04/07/23 08:36 Freq: NEEDED Status: Active Protocol: Document 04/07/23 09:16 AMS (Rec: 04/07/23 09:35 [facility] [id number]) Medical Review Social History Household Members spouse Living Arrangements House Number of Floors (Floors) One Floor Number of Stairs To Enter/Railing? 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 OT Pain Assessment Pain Present Pain Present Denied Pain M4 OT- IP ADL's Start: 04/07/23 08:36 Freq: Status: Active Protocol: Document 04/07/23 09:16 AMS (Rec: 04/07/23 09:35 [facility] [id number]) OT QON-Fbpj-Ryignwf General Evaluation Self-Feeding Ability Independent Comments OT Self-Feeding Comments Right handed; use of self- feeding utensils and pen w/ right hand. However, fed self portion of breakfast w/ L hand . OT ADL-Grooming Comments OT Grooming Comments Did not assess OT ADL-Oral Care Comments Oral Care Comments Did not assess OT ADL-Dressing Comments OT Dressing Comments Did not assess OT ADL-Toileting Comments OT Toileting Comments Did not assess OT ADL-Bathing Comments OT Bathing Comments Did not assess M5 OT- IP IADL's Start: 04/07/23 08:36 Freq: Status: Active Protocol: Document 04/07/23 09:16 AMS (Rec: 04/07/23 09:35 [facility] [id number]) OT-Instrumental Activities of Daily Living Driving Driving Comments PLOF = independent w/ driving M6 OT- IP Functional Cognition Start: 04/07/23 08:36 Freq: Status: Active Protocol: Document 04/07/23 09:16 AMS (Rec: 04/07/23 09:35 [facility] [id number]) Cognitive Factors Limiting Selfcare Function Cognitive Ability Level of Alertness Alert Patient Orientation Name,Year,Day of Week,Place Attention Span Ability Capable of Focused Attention, Capable of Sustained Attention Cognitive Comments Cognitive Assessment Comments Good divided attention; good self-awareness to errors; good problem solving (ability to use available information); with untimed trail making Test A and Test B, self-corrected all errors and able to alternate between letters and numbers without support. Good strategies used to ensure sequencing with alphabet portion of test. Good multitasking/ability to transition between conversations observed ( between clinician and other staff). Able to filter/focus attention observed w/ engagement in untimed tests and conversation w/ therapist despite television being on during session. OT- Vision and Hearing OT- Hearing Assessment OT- Hearing Assessment WFL OT- Vision Assessment Visual Attentiveness WFL Vision Assessment Comments Wears glasses M9 OT- IP Assessment and Plan Start: 04/07/23 08:36 Freq: Status: Active Protocol: Document 04/07/23 09:16 AMS (Rec: 04/07/23 09:35 [facility] [id number]) OT Summary Assessment and Plan Summary Assessment Summary Patient reports that he is discharging home today at 10: 00 a.m. with daughter providing transportation. He reports residing in single level home with his spouse who uses cane with ambulation. He denied any concerns regarding discharge to home. He demonstrated ability to follow directions and multi-task, as well as good divided attention and ability problem solve with utilization of available information with untimed trail making tests. He was not agreeable to getting dressed at time of evaluation; he demonstrated right handedness w/ self-feeding and pen use with observed ability to feed self portion of meal w/ the left hand, adequate contralateral stabilization ( paper/plate), as well as ability to rearrange items on the bedside table without coordination difficulties with the left hand. Recommend PT evaluation to ensure safety with mobility and transfers. Frequency of Treatment Frequency Of Treatment Discharge Discharge Recommendations OT Discharge Recommendations Home Other Discharge Recommendations Patient reports he will be d/c home today at 10:00 a.m. with daughter's assistance. Transportation Needs at Discharge Private Vehicle
--- NOTE | 2023-04-07 10:16 | PT-IP ANOTE ---
Visited with patient; patient reported he was previously independent without AD, lives with and has a daughter who lives locally and is planning to pick him up at 10:00 this morning. Lives in a single level home with one step to enter. Patient demonstrated the ability to get up and down from chair, ambulate 100 ft without AD without LOB and minimal unsteadiness, no lightheadedness/dizziness, pain, or shortness of breath. No concerns for home d/c, PT screen only. No further PT indicated.
--- NOTE | 2023-04-07 14:04 | P.DS_ITS ---
History of Present Illness History of Present Illness Chief complaint: Code Stroke Narrative: Per history and physical: Heath Mcdonald is an 87yo M with PMH of alcoholism, CLL, CAD s/p coronary stent, HLD, gout, and BPH who presents with possible TIA after being found down with left-sided deficits. Patient only remembers watering plants outside when he suddenly became dizzy so lowered himself to the ground. He thinks he then may have passed out. He next remembers waking up with EMS present. He had confusion, slurred speech and was flaccid on his left side. This lasted for several minutes then resolved en route to the hospital. He currently denies any weakness, facial droop or speech difficulty. His MRI brain was degraded from motion artifact and positioning. Patient prefers not to repeat MRI. He notes starting a new medication this morning, flomax for his BPH. However he previously had dizziness with flomax so he was stopped. He thinks the med contributed to his event. He denies CP, NV, SOB, abd pain or diarrhea. In the ED patient had a normal head CT. CTA head with no stroke, but severe chronic small vessel ischemic changes, plaques at carotid bifurcations bilaterally R>L, 30% stenosis of right proximal ICA, and 60% stenosis of right vertebral artery origin. NIH was 1 for some confusion. Discharge Providers Provider Date of admission: 04/06/23 14:32 Discharge Date: 04/07/23 Primary care physician: Torin Conner MD Consults: Patient was fully independent in the room; therefore, PT and OT consults were canceled Discharge provider: Jillian Benavides MD Summary Hospital Course Discharge Diagnosis: 1. Transient ischemic attack 2. Probable orthostatic hypotension induced by tamsulosin 3. Daily alcohol use, no evidence for withdrawal 4. CLL 5. BPH 6. Gout Hospital Course: Patient was admitted after an acute event while he was gardening. He states he took a dose of Flomax and prior to onset of TIA symptoms, he felt a wave of weakness and lightheadedness. He reports having had Flomax once before and having had a similar constellation of symptoms. He woke up with EMS present with confusion, slurred speech, and left-sided flaccidity. By the time he arrived to the ER his symptoms had resolved. CT did not reveal evidence of stroke. MRI was done but with poor image quality. Patient was not receptive to repeat it. Patient remained asymptomatic throughout the night. No recurrent symptoms. Blood pressures were stable. Lipids reveal good LDL control. Glucose was within normal limits. Patient was freely mobile around the hospital room with no residual symptoms. He is being discharged home on 21 days of dual anti-platelet therapy and then will resume aspirin monotherapy. As his LDL is well controlled, he was transitioned from atorvastatin back to his home dose of simvastatin. He was encouraged to follow-up with his urologist, Dr. Coronel, and advise his office of the need for tamsulosin to be placed on his allergy list as he has had orthostatic hypotension on 2 occasions, the current instance of which led to hospitalization. He agrees. Patient is discharged in stable condition. I did offer to call his daughter who is employed here at the hospital to provide an update and patient declined. Status at Discharge Cognitive/behavioral status at discharge: at baseline, oriented Functional status at discharge: independent ambulation Overall status at discharge: patient is back to baseline Time Spent with Patient Time spent: Less than 30 minutes Exam Vital Signs (past 8 hours): - 04/07/23 09:00 Temperature 98.3 F Pulse Rate 72 Respiratory Rate 18 Blood Pressure 167/65 H Pulse Oximetry 98 Oxygen Flow Rate 0 Oxygen Delivery Method Room Air Oxygen Flow Rate 0 Narrative Exam Narrative: GEN: Very pleasant elderly male, Alert and oriented x 3, NAD HEENT:NC, Face symmetric CHEST: Respiratory excursions symmetric, CTAB CV: RRR, no M/R/G ABD: Soft, NT/ND, BT present in all 4 quadrants, no organomegaly or masses EXTR: warm, well perfused, no C/C/E SKIN: warm and dry, no rash NEURO: Alert and oriented x 3, nonfocal Objective Labs 04/07/23 05:30 04/07/23 05:30 Labs: Laboratory Results - last 24 hr 04/06/23 04/06/23 04/06/23 12:29 12:29 12:29 WBC RBC Hgb Hct MCV MCH MCHC RDW Plt Count Neut % (Auto) Lymph % (Auto) Bibb % (Auto) Eos % (Auto) Baso % (Auto) Neut # (Auto) Lymph # (Auto) Bibb # (Auto) Eos # (Auto) Baso # (Auto) Sodium Potassium Chloride Carbon Dioxide BUN Creatinine Estimated GFR BUN/Creatinine Ratio Glucose Hgb A1c (Ref Lab) Calcium Magnesium 2.1 Triglycerides 126 Cholesterol 148 LDL Cholesterol, Calc 71 HDL Cholesterol 52 TSH 6.76 H Free T4 0.98 Urine Color Urine Appearance Urine pH Ur Specific Searcy Urine Protein Urine Glucose (UA) Urine Ketones Urine Occult Blood Urine Nitrate Urine Bilirubin Urine Urobilinogen Ur Leukocyte Esterase Urine RBC Urine WBC Urine Bacteria Ur Culture Indicated? Nasal Screen MRSA (PCR) U Opiates 300ng/mL cut Ur Oxycodone Screen Urine Methadone Screen Ur Barbiturates Screen U Tricyclic Antidepress Ur Phencyclidine Scrn Ur Amphetamines Screen U Methamphetamines Scrn Ur MDMA Scrn (Ecstasy) U Benzodiazepines Scrn Urine Cocaine Screen U Marijuana (THC) Screen 04/06/23 04/06/23 04/06/23 12:29 15:07 15:07 WBC RBC Hgb Hct MCV MCH MCHC RDW Plt Count Neut % (Auto) Lymph % (Auto) Bibb % (Auto) Eos % (Auto) Baso % (Auto) Neut # (Auto) Lymph # (Auto) Bibb # (Auto) Eos # (Auto) Baso # (Auto) Sodium Potassium Chloride Carbon Dioxide BUN Creatinine Estimated GFR BUN/Creatinine Ratio Glucose Hgb A1c (Ref Lab) 5.6 Calcium Magnesium Triglycerides Cholesterol LDL Cholesterol, Calc HDL Cholesterol TSH Free T4 Urine Color Yellow Urine Appearance Clear Urine pH 6.5 Ur Specific Searcy <=1.005 Urine Protein Negative Urine Glucose (UA) Negative Urine Ketones Trace H Urine Occult Blood Trace-intact Urine Nitrate Negative Urine Bilirubin Negative Urine Urobilinogen 0.2 Ur Leukocyte Esterase 1+ H Urine RBC 0-1/hpf Urine WBC 1-5/hpf Urine Bacteria Occasional (0-1) Ur Culture Indicated? Specimen cultured Nasal Screen MRSA (PCR) U Opiates 300ng/mL cut Negative Ur Oxycodone Screen Negative Urine Methadone Screen Negative Ur Barbiturates Screen Negative U Tricyclic Antidepress Negative Ur Phencyclidine Scrn Negative Ur Amphetamines Screen Negative U Methamphetamines Scrn Negative Ur MDMA Scrn (Ecstasy) Negative U Benzodiazepines Scrn Negative Urine Cocaine Screen Negative U Marijuana (THC) Screen Negative 04/06/23 04/07/23 04/07/23 17:00 05:30 05:30 WBC 9.2 RBC 4.14 L Hgb 13.3 L Hct 39.6 L MCV 95.5 MCH 32.1 MCHC 33.6 RDW 14.2 Plt Count 216 Neut % (Auto) 44.2 L D Lymph % (Auto) 39.7 Bibb % (Auto) 12.5 Eos % (Auto) 3.0 Baso % (Auto) 0.6 Neut # (Auto) 4100 Lymph # (Auto) 3700 Bibb # (Auto) 1200 H Eos # (Auto) 300 Baso # (Auto) 100 Sodium 139 Potassium 4.5 Chloride 106 Carbon Dioxide 30 BUN 14 Creatinine 0.80 Estimated GFR > 60 BUN/Creatinine Ratio 17.5 Glucose 101 Hgb A1c (Ref Lab) Calcium 8.6 Magnesium Triglycerides Cholesterol LDL Cholesterol, Calc HDL Cholesterol TSH Free T4 Urine Color Urine Appearance Urine pH Ur Specific Searcy Urine Protein Urine Glucose (UA) Urine Ketones Urine Occult Blood Urine Nitrate Urine Bilirubin Urine Urobilinogen Ur Leukocyte Esterase Urine RBC Urine WBC Urine Bacteria Ur Culture Indicated? Nasal Screen MRSA (PCR) Not detected U Opiates 300ng/mL cut Ur Oxycodone Screen Urine Methadone Screen Ur Barbiturates Screen U Tricyclic Antidepress Ur Phencyclidine Scrn Ur Amphetamines Screen U Methamphetamines Scrn Ur MDMA Scrn (Ecstasy) U Benzodiazepines Scrn Urine Cocaine Screen U Marijuana (THC) Screen [facility] Medical History (Updated 04/07/23 @ 10:10 by Arya Coronel MD) Alcoholism (09/11/15) CLL (chronic lymphocytic leukemia) Coronary artery disease (2001) Dyslipidemia Osorio catheter in place Gout (2014) Lower urinary tract symptoms Spontaneous rupture of spleen Urinary retention Urinary tract infection Surgical History Anesthesia H/O heart artery stent (2001) 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 Father Heart disease Emphysema lung Mother Alzheimer's disease Social History household members: spouse Smoking Status: Former smoker alcohol intake: current substance use type: does not use Discharge Plan Discharge Plan Patient Disposition: Home Provider Discharge Comment: Please contact Dr. Coronel's office and let them know you had a reaction to tamsulosin (Flomax), and have them add it to your allergy list. It likely caused low blood pressure which triggered your TIA symptoms. You did not have a stroke. Your cholesterol is well controlled. No other concerning findings were noted. We are recommending three weeks of taking 2 medications for stroke prevention - continue your usual daily aspirin. We are adding clopidogrel (Plavix). Take clopidogrel until gone. Continue aspirin after that. Do not take meloxicam while taking clopidogrel due to bleeding risk. Take tylenol for pain if needed. Discharge orders & Medications Prescriptions: New clopidogrel 75 mg Tablet 75 mg PO DAILY Qty: 20 0RF Continued aspirin 325 MG tablet,delayed release (DR/EC) 162.5 mg PO QDAY Qty: 0 allopurinol 300 mg tablet 300 mg PO DAILY Qty: 90 3RF meloxicam 7.5 mg tablet 7.5 mg PO DAILY Qty: 90 3RF simvastatin 40 mg tablet 40 mg PO DAILY Qty: 90 3RF tadalafil [Cialis] 5 mg tablet 5 mg PO DAILY Qty: 30 12RF Discontinued ciprofloxacin HCl 500 mg tablet 500 mg PO BID Qty: 10 0RF Rx Instructions: Patient is to hold simvastatin while taking this medication No Action amoxicillin 500 mg tablet 500 mg PO TID Qty: 30 0RF Follow up/Referrals: Torin Conner MD [Primary Care Provider] - Diet/Activity/Treatments Diet: Diet as Tolerated Activity: As tolerated Oxygen: N/A Visit Report/Discharge Packet Instructions: Stroke (Alternative Therapy), Transient Ischemic Attack, DI for Orthostatic Hypotension, DI for Transient Ischemic Attack, Clopidogrel Stand Alone Forms: Patient Portal/API, Stroke Signs & Symptoms Discharge Data Primary Care Provider: Torin Conner Attending Provider: Scottie Edwards Admit Date/Time: 04/06/23 14:32 Discharges patient from system. Discharge Date/Time: 04/07/23 10:04
== END 2023-04-07 10:04 | disposition home or self-care (01) ==
LOC: ED 12:31 → AC 14:33 → ICU 15:17
PROVIDERS: Admitting Provider Student in an Organized Health Care Education/Training Program; Emergency Provider Emergency Medicine; Family Provider Student in an Organized Health Care Education/Training Program; PCP Student in an Organized Health Care Education/Training Program; Referring Provider Emergency Medicine; Visit Provider Student in an Organized Health Care Education/Training Program
DX: G45.9 Transient cerebral ischemic attack, unspecified (principal); R47.81 Slurred speech; R42 Dizziness and giddiness; D72.828 Other elevated white blood cell count; N40.0 Benign prostatic hyperplasia without lower urinary tract symptoms; I25.10 Atherosclerotic heart disease of native coronary artery without angina pectoris; R29.701 NIHSS score 1; R33.9 Retention of urine, unspecified
CPT/HCPCS: 36415; 51798; 70450; 70496; 70498; 70551; 71045; 80048; 80053; 80061; 80305; 80320; 81001; 82550; 82553; 82962; 83036; 83735; 84439; 84443; 84484; 85025; 85610; 85730; 87086; 87797; 93005; 93010; 93306; 96365; 96366; 96372; 97165; 97530; 99285; G0378; J0696; J1650; Q9967

== ENCOUNTER → 2023-12-12 06:29 | Outpatient (CLI) | payer MEDICARE, SELFPAY ==
[2023-04-06 14:34] VITALS: BMI 28.2
[2023-12-12 08:13] LABS: Add Manual Diff / Slide Review NO; Basophils Absolute Auto 100 /uL (0-100); Basophils Percent Auto 0.6 % (0-2); Eosinophils Absolute Auto 200 /uL (0-450); Eosinophils Percent Auto 1.5 % (2-4); Hematocrit 47.7 % (41-53); Lymphocytes Absolute Auto 8000 /uL (1100-4500); Lymphocytes Percent Auto 64.5 % (25-40); Mean Corpuscular HGB Conc 33.5 % (30-36); Mean Corpuscular Hemoglobin 32.5 PG (26-34); Mean Corpuscular Volume 97.2 fL (80-100); Monocytes Absolute Auto 1100 /uL (0-900); Monocytes Percent Auto 9.2 % (3-14); Neutrophils Absolute Auto 3000 /uL (1500-7000); Neutrophils Percent Auto 24.2 % (50-75); Platelet Count 207 X10^3/uL (150-400); Red Blood Cell Count 4.91 X10^6/uL (4.5-5.9); Red Cell Distribution Width 14.2 % (11.6-14.8); White Blood Cell Count 12.3 X10^3/uL (4.5-11.0)
[2023-12-12 08:30] LABS: Alanine Aminotransferase 22 IU/L (<50); Albumin 4.1 g/dL (3.5-5.0); Albumin Globulin Ratio 1.2 (1.0-2.8); Alkaline Phosphatase 67 U/L (38-126); Aspartate Aminotransferase 31 IU/L (17-59); Blood Urea Nitrogen 17 mg/dL (9-20); Calcium 9.6 mg/dL (8.4-10.2); Carbon Dioxide 32 mmol/L (22-32); Chloride 103 mmol/L (98-107); Cholesterol 161 mg/dL (140-199); Estimated Glomerular Filt Rate > 60 mL/min (>60); Globulin 3.3 g/dL (1.7-4.1); Glucose 105 mg/dL (80-110); HDL Cholesterol 67 mg/dL (40-60); HEMOLYSIS < 15 (0-50); LDL Cholesterol Calculated 71 mg/dL (<100); Potassium 4.1 mmol/L (3.4-5.1); Sodium 140 mmol/L (137-145); Total Protein 7.4 g/dL (6.3-8.2); Triglycerides 114 mg/dL (35-150)
[2023-12-12 08:35] LABS: NT-proBNP (BNP-Adult 18+) 426 pg/mL (<450)
== END ==
PROVIDERS: PCP Family Medicine; Referring Provider Family Medicine; Visit Provider Family Medicine
DX: I25.10 Atherosclerotic heart disease of native coronary artery without angina pectoris (principal); I65.23 Occlusion and stenosis of bilateral carotid arteries; E78.5 Hyperlipidemia, unspecified; C91.90 Lymphoid leukemia, unspecified not having achieved remission; R60.0 Localized edema; R06.02 Shortness of breath
CPT/HCPCS: 36415; 80053; 80061; 83880; 85025

== ENCOUNTER → 2025-01-23 09:18 | Outpatient (CLI) | payer MEDICARE, SELFPAY ==
[2025-01-14 10:11] VITALS: BMI 28.2
== END ==
PROVIDERS: PCP Internal Medicine; Visit Provider Urology
DX: N40.1 Benign prostatic hyperplasia with lower urinary tract symptoms (principal); N13.8 Other obstructive and reflux uropathy
CPT/HCPCS: 87086